=== PATIENT | female | born 1930 | race Caucasian/White ===

== ENCOUNTER 2016-11-28 12:01 | Day surgery (SDC) | payer MEDICARE ==
[2016-11-25 15:07] VITALS: BMI 22.4
[~2016-11-28 12:01] MED LIST: LACTATED RINGERS 1,000 ML IV SCH
[2016-11-28] MEDS: SODIUM CHLORIDE 0.9% 1,000 ML IV SCH ×2 (13:00→19:59)
[2016-11-28 13:10] LABS: INR 2.3 (<1.1); Prothrombin Time 22.4 sec (9.0-12.0)
[2016-11-28 13:35] LABS: Basophils # (A) 0.1 k/uL (0-0.2); Basophils % (A) 1 %; CH 30.5; CHCM 31.6; Eosinophils # (A) 0.2 k/uL (0-0.7); Eosinophils % (A) 2 %; HCT 38.8 % (34.0-46.0); HDW 3.32; HGB 12.2 gm/dL (11.4-16.0); Hypochromasia Slight; Luc # (Auto) 0.22; Luc % (Auto) 3; Lymphocytes # (A) 1.3 k/uL (1.0-4.8); Lymphocytes % (A) 16 %; MCH 30.6 pg (25.0-35.0); MCHC 31.5 g/dL (31.0-37.0); MCV 97.2 fL (80.0-100.0); Mean Platelet Volume 8.2; Monocytes # (A) 0.3 k/uL (0-1.0); Monocytes % (A) 4 %; Neutrophils # (A) 6.4 k/uL (1.3-7.7); Neutrophils % (A) 75 %; RBC 3.99 m/uL (3.80-5.40); WBC 8.6 k/uL (3.8-10.6); WBC (Perox) 9.17
[2016-11-28 13:46] LABS: Anion Gap 9 mmol/L; Blood Urea Nitrogen 27 mg/dL (7-17); Calcium 10.1 mg/dL (8.4-10.2); Carbon Dioxide 25 mmol/L (22-30); Chloride 108 mmol/L (98-107); Glucose 109 mg/dL (74-99); Non-African American GFR(MDRD) 50 (>60 ml/min/1.73 sqM); Potassium 4.7 mmol/L (3.5-5.1); Sodium 142 mmol/L (137-145)
[2016-11-28] MEDS ORDERED: fentaNYL (PF) 50 MCG/ML 2 ML AMP ONE (14:25)
[2016-11-28] MEDS ORDERED: LIDOCAINE 1% INJ 10MG/ML (20 ML MDV) ONE (14:25)
[2016-11-28] MEDS ORDERED: MIDAZOLAM 2 MG/2 ML VIAL ONE (14:25)
[2016-11-28] MEDS ORDERED: PROPOFOL 10 MG/ML 20 ML VIAL IV ONE (14:25)
[2016-11-28] MEDS ORDERED: ceFAZolin 1,000 MG VIAL ONE (14:25)
[2016-11-28] MEDS ORDERED: LIDOCAINE 2% INJ 20 MG/ML SQ ONE (14:50)
--- NOTE | 2016-11-28 15:50 | P.PCN ---
Preoperative Diagnosis: Procedure Dual-chamber pacemaker interrogation and reprogramming preprocedure Electrical cardioversion AV node modification Dual-chamber pacemaker interrogation and reprogramming postprocedure Indication for procedure Drug refractory atrial fibrillation, very difficult rate control despite high- dose AV cinthya blocking drugs, failed several antiarrhythmic drugs Procedure 1. A Metronic dual-chamber pacemaker was interrogated. Atrial lead impedance 976 ohms, ventricular pacing impedance 520 ohms. Patient was in atrial fibrillation with RVR despite sedation The device was reprogrammed to VVI 40 bpm 2. Electrical cardioversion was performed. Patient's INR was therapeutic. A 360 J biphasic shock was delivered in the EP configuration and the patient converted to sinus rhythm 3. AV node modification: A long sheath was placed in the right atrium and a 4 mm tip ablation catheter was used to map the His bundle. Just proximal and slightly below this, RF application at 50 W resulted in complete heart block. An additional more proximal RF lesion was also applied. The patient remained at VVI 40 beats a minute with A-V dissociation 4. The pacemaker was then reprogrammed to DDDR mode at 90 bpm. Post ablation atrial lead impedance 952 ohms. Ventricular pacing impedance 488 ohms Result Successful ablation of AV node Device programmed to a base rate of 90 bpm for the next 2-3 weeks Plan Continue base pacing rate at 90 beats a minute for 2-3 weeks and then reduce to 60 beats a minute thereafter Stop digoxin completely Reduce metoprolol XL to 50 mg per day Home blood pressure monitoring If blood pressure remains elevated after this then we will increase amlodipine to 5 mg by mouth daily Continue lifelong anticoagulation Anesthesia: MAC
[2016-11-28] MEDS ORDERED: WARFARIN 5 MG TAB PO SCH (18:00)
[2016-11-28] MEDS ORDERED: ASPIRIN 81 MG CHEW PO SCH (20:00)
[2016-11-28] MEDS: LISINOPRIL 20 MG TAB PO SCH (20:34)
[2016-11-28] MEDS ORDERED: ATORVASTATIN 20 MG TAB PO SCH (21:00)
[2016-11-28 23:46] VITALS: RESP 16
[2016-11-29] MEDS: LISINOPRIL 20 MG TAB PO SCH (08:14)
--- NOTE | 2016-11-29 08:21 | PN ---
Ms. Torres is doing well. Her groin has healed well. She is having breakfast sitting up at the edge of the bed. She has no chest pain. No breathing trouble. Her pacemaker rate is at 90 beats a minute, post AV node ablation. Heart and lung examination normal. Her blood pressure was mildly elevated this morning. PLAN: Discharge home today after pacemaker interrogation. The pacemaker programming will be maintained at 90 beats a minute for the next 2 to 3 weeks and this was conveyed to the staff as well as to the [employer] sales representative groceries. We will see her again in about 5 days for groin check and for blood pressure re-evaluation. If her blood pressure is elevated, we may consider either amlodipine or we may consider carvedilol. However, I feel that she does not tolerate beta blockers well and we may result to amlodipine instead. Digoxin has been discontinued completely and the dose of metoprolol has been reduced to 50 mg p.o. daily.
[2016-11-29 08:44] VITALS: BP 172/82; PULSE 91; TEMP 97.6
[2016-11-29] MEDS ORDERED: METOPROLOL SUCCINATE (ER) 100 MG TAB.ER.24H PO SCH (09:00)
[2016-11-29] MEDS ORDERED: METOPROLOL SUCCINATE (ER) 50 MG TAB.ER.24H PO SCH (09:00)
[2016-12-01] MEDS ORDERED: WARFARIN 2.5 MG TAB PO SCH (18:00)
== END 2016-11-29 10:35 | disposition home or self-care (01) ==
LOC: CATHEP 12:01 → 3OBS 15:11 → CATHEP 11-29 10:35
PROVIDERS: ATTEND Internal Medicine Clinical Cardiac Electrophysiology
DX: I48.2 Chronic atrial fibrillation (principal); Z45.018 Encounter for adjustment and management of other part of cardiac pacemaker; I25.10 Atherosclerotic heart disease of native coronary artery without angina pectoris; Z95.1 Presence of aortocoronary bypass graft; I49.5 Sick sinus syndrome; E78.5 Hyperlipidemia, unspecified; I12.9 Hypertensive chronic kidney disease with stage 1 through stage 4 chronic kidney disease, or unspecified chronic kidney disease; N18.9 Chronic kidney disease, unspecified; I27.2 Other secondary pulmonary hypertension; Z79.01 Long term (current) use of anticoagulants; Z79.82 Long term (current) use of aspirin; Z79.899 Other long term (current) drug therapy; Z88.8 Allergy status to other drugs, medicaments and biological substances; Z87.891 Personal history of nicotine dependence; Z86.73 Personal history of transient ischemic attack (TIA), and cerebral infarction without residual deficits
CPT/HCPCS: 92960; 93650; 80048; 85025; 85610; C1894; C1769; C1893; C1733; J2001 ×2; J2250; J0690; J3010; J2704

== ENCOUNTER → 2017-02-18 | Outpatient (CLI) | payer MEDICARE ==
[2017-02-18 07:24] LABS: Anisocytosis Slight; Basophils % (A) 1 %; CH 30.3; CHCM 31.4; Eosinophils # (A) 0.3 k/uL (0-0.7); Eosinophils % (A) 4 %; HCT 36.6 % (34.0-46.0); HGB 11.4 gm/dL (11.4-16.0); Hypochromasia Slight; Luc # (Auto) 0.11; Luc % (Auto) 2; Lymphocytes # (A) 1.5 k/uL (1.0-4.8); Lymphocytes % (A) 22 %; MCH 30.3 pg (25.0-35.0); MCHC 31.2 g/dL (31.0-37.0); MCV 97.1 fL (80.0-100.0); Mean Platelet Volume 7.1; Monocytes # (A) 0.4 k/uL (0-1.0); Monocytes % (A) 6 %; Neutrophils # (A) 4.5 k/uL (1.3-7.7); Neutrophils % (A) 66 %; RBC 3.76 m/uL (3.80-5.40); RDW 16.6 % (11.5-15.5); WBC 6.7 k/uL (3.8-10.6); WBC (Perox) 7.15
[2017-02-18 07:27] LABS: Appearance,Urine Clear (Clear); Bilirubin,Urine Negative (Negative); Glucose,Urine (UA) Negative (Negative); Ketones,Urine Negative (Negative); Leukocyte Esterase,Urine Negative (Negative); Nitrite,Urine Negative (Negative); Protein,Urine Negative (Negative); Specific Gravity,Urine 1.011 (1.001-1.035); UA Billing (MACRO vs. MICRO) CHEM; Urobilinogen,Urine <2.0 mg/dL (<2.0)
[2017-02-18 07:50] LABS: Calcium 10.2 mg/dL (8.4-10.2); Potassium 4.5 mmol/L (3.5-5.1); Total Bilirubin 0.9 mg/dL (0.2-1.3); Total Protein 7.1 g/dL (6.3-8.2)
== END | disposition home or self-care (01) ==
LOC: LABWHC1 06:54
PROVIDERS: ATTEND Internal Medicine
DX: E78.5 Hyperlipidemia, unspecified (principal); I10 Essential (primary) hypertension; E55.9 Vitamin D deficiency, unspecified
CPT/HCPCS: 36415; 80053; 80061; 81003; 82306; 85025

== ENCOUNTER 2018-01-18 10:56 | Inpatient (IN) | payer MEDICARE ==
[2018-01-18] MEDS ORDERED: IPRATROPIUM-ALBUTEROL 3 ML NEB INHALATION STA (12:14)
[2018-01-18] MEDS ORDERED: SODIUM CHLORIDE 0.9% 1,000 ML IV STA ×2 (12:15)
--- NOTE | 2018-01-18 12:48 | ED ---
URI HPI - General Source: patient, RN notes reviewed, old records reviewed Mode of arrival: wheelchair Limitations: no limitations <Fara Wall - Last Filed: 01/18/18 14:13> <Ovi Wood - Last Filed: 01/18/18 14:55> - General Chief Complaint: Upper Respiratory Infection Stated Complaint: Cough Time Seen by Provider: 01/18/18 12:04 - History of Present Illness Initial Comments: 87-year-old female presents emergency Department a chief complaint of increased cough congestion shortness of breath. She states that she her symptoms of been going on for a week. states that she has a history of bypass surgery. Her order runner Dr. White. She denies any significant chest pain. No nausea or vomiting. Patient reports it's been a clear sputum cough. She denies any fever or chills. No upper respiratory drainage. No abdominal pain. (Fara Wall) - Related Data Home Medications Medication Instructions Recorded Confirmed Aspirin [Adult Low Dose Aspirin EC] 81 mg PO 199911/25/16 11/28/16 Atorvastatin [Lipitor] 20 mg PO HS 11/25/16 11/28/16 Cholecalciferol [Vitamin D3] 1,000 unit PO DAILY 11/25/16 11/28/16 Cranberry(Dose Unknown) 1 tab PO DAILY 11/25/16 11/28/16 L.acidoph,Paracasei, B.lactis 1 tab PO DAILY 11/25/16 11/28/16 [Probiotic] Lisinopril 20 mg PO BID 11/25/16 11/28/16 Warfarin [Coumadin] 2.5 mg PO PERALTA 11/25/16 11/28/16 Warfarin [Coumadin] 5 mg PO [id number] 11/25/16 11/28/16 amLODIPine [Norvasc] 2.5 mg PO DAILY 11/25/16 11/28/16 Previous Rx's Medication Instructions Recorded Metoprolol Succinate [Toprol XL] 50 mg PO QAM #1 tab.er.24h 11/28/16 Allergies Allergy/AdvReac Type Severity Reaction Status Date / Time cortisone Allergy face gets Verified 01/18/18 11:27 warm Review of Systems ROS Other: All systems not noted in ROS Statement are negative. <Fara Wall - Last Filed: 01/18/18 14:13> ROS Other: All systems not noted in ROS Statement are negative. <Ovi Wood - Last Filed: 01/18/18 14:55> ROS Statement: Those systems with pertinent positive or pertinent negative responses have been documented in the HPI. Past Medical History Past Medical History: Coronary Artery Disease (CAD), CVA/TIA, GERD/Reflux, Hyperlipidemia, Hypertension Additional Past Medical History / Comment(s): TIA, varicose veins History of Any Multi-Drug Resistant Organisms: None Reported Past Surgical History: Appendectomy, Coronary Bypass/CABG, Hysterectomy, Joint Replacement, Pacemaker, Tonsillectomy Additional Past Surgical History / Comment(s): CABG 2011, breast biopsy, liat catarats, rt knee replacement Past Anesthesia/Blood Transfusion Reactions: No Reported Reaction Type of Cardiac Device: Permanent Pacemaker Device Placement Date:: 2011 Past Psychological History: Anxiety Smoking Status: Former smoker Past Alcohol Use History: None Reported Past Drug Use History: None Reported - Past Family History Mother Family Medical History: No Reported History <Fara Wall - Last Filed: 01/18/18 14:13> General Exam Limitations: no limitations General appearance: alert, in no apparent distress Head exam: Present: atraumatic, normocephalic, normal inspection Eye exam: Present: normal appearance, PERRL, EOMI. Absent: scleral icterus, conjunctival injection, periorbital swelling ENT exam: Present: normal exam, mucous membranes moist, other (Rhinorrhea) Neck exam: Present: normal inspection. Absent: tenderness, meningismus, lymphadenopathy Respiratory exam: Present: normal lung sounds bilaterally, wheezes, decreased breath sounds ( is decreased breath sound. Wet sounding cough.). Absent: respiratory distress, rales, rhonchi, stridor Cardiovascular Exam: Present: regular rate, normal rhythm, normal heart sounds. Absent: systolic murmur, diastolic murmur, rubs, gallop, clicks GI/Abdominal exam: Present: soft, normal bowel sounds. Absent: distended, tenderness, guarding, rebound, rigid Extremities exam: Present: normal inspection, full ROM, normal capillary refill , other (No significant edema.). Absent: tenderness, pedal edema, joint swelling, calf tenderness Back exam: Present: normal inspection Neurological exam: Present: alert, oriented X3, CN II-XII intact Psychiatric exam: Present: normal affect, normal mood Skin exam: Present: warm, dry, intact, normal color. Absent: rash <Fara Wall - Last Filed: 01/18/18 14:13> <Ovi Wood - Last Filed: 01/18/18 14:55> - General Exam Comments Initial Comments: This is an 87-year-old female. Alert and oriented. No significant distress. ( Fara Wall) Vital Signs 01/18/18 01/18/18 01/18/18 11:21 12:18 12:29 Temperature 97.7 F Pulse Rate 62 62 64 Respiratory 18 Rate Blood Pressure 199/80 O2 Sat by Pulse 97 Oximetry 01/18/18 14:00 Temperature Pulse Rate 60 Respiratory 20 Rate Blood Pressure 231/93 O2 Sat by Pulse 100 Oximetry Medical Decision Making - Lab Data Result diagrams: 01/18/18 12:45 01/18/18 12:45 - Radiology Data Radiology results: report reviewed <Fara Wall - Last Filed: 01/18/18 14:13> - Lab Data Result diagrams: 01/18/18 12:45 01/18/18 12:45 <Ovi Wood - Last Filed: 01/18/18 14:55> - Medical Decision Making 7-year-old female presents with 1 week of cough and shortness of breath. Patient does not have any significant leg edema but does have a diminished breath sounds. Patient's chest x-ray shows evidence of bilateral pleural effusion and increased vascular congestion. Patient also did have some wheezing noted on exam. She is given a DuoNeb treatment. Patient has an elevated BNP of 5500. Patient started on IV Lasix. Her order runner Dr. Potter in. EKG is ventricular paced rhythm. Rate is 60 bpm. Patient will be admitted at this time with close follow-up with cardiology. Start IV Lasix and Nitropaste. She did also arrive and hypertensive emergency with blood pressure 200/100. He was given IV labetalol. The patient's wheezing also concern for possibility of pneumonia. We'll start the patient on IV Levaquin. Continued breathing treatments. (Fara Wall) The patient was seen and examined. All diagnostics are reviewed. The case is discussed with Dr. Rouse and he is agreeable to admission. The case is discussed with the PA and I agree with the findings as documented. It is felt as though she likely also may have a bronchitis or pneumonia. She does have a consolidation in her left base and has been having a fair amount of nasal congestion and cough. She denies any actual fever. She'll be covered with antibiotics as well. (Ovi Wood) - Lab Data Lab Results 01/18/18 01/18/18 01/18/18 Range/Units 12:45 12:45 12:45 WBC 9.0 (3.8-10.6) k/uL RBC 3.82 (3.80-5.40) m/uL Hgb 11.5 (11.4-16.0) gm/dL Hct 36.1 (34.0-46.0) % MCV 94.7 (80.0-100.0) fL MCH 30.2 (25.0-35.0) pg MCHC 31.9 (31.0-37.0) g/dL RDW 15.1 (11.5-15.5) % Plt Count 211 (150-450) k/uL Neutrophils % 81 % Lymphocytes % 9 % Monocytes % 5 % Eosinophils % 3 % Basophils % 0 % Neutrophils # 7.2 (1.3-7.7) k/uL Lymphocytes # 0.8 L (1.0-4.8) k/uL Monocytes # 0.5 (0-1.0) k/uL Eosinophils # 0.3 (0-0.7) k/uL Basophils # 0.0 (0-0.2) k/uL PT (9.0-12.0) sec INR (<1.2) APTT (22.0-30.0) sec D-Dimer (<0.60) mg/L FEU Sodium 141 (137-145) mmol/L Potassium 4.6 (3.5-5.1) mmol/L Chloride 107 (98-107) mmol/L Carbon Dioxide 22 (22-30) mmol/L Anion Gap 12 mmol/L BUN 25 H (7-17) mg/dL Creatinine 0.92 (0.52-1.04) mg/dL Est GFR (CKD-EPI)AfAm 65 (>60 ml/min/1.73 sqM) Est GFR (CKD-EPI)NonAf 57 (>60 ml/min/1.73 sqM) Glucose 113 H (74-99) mg/dL Calcium 10.0 (8.4-10.2) mg/dL Magnesium 1.5 L (1.6-2.3) mg/dL Total Bilirubin 1.1 (0.2-1.3) mg/dL AST 37 H (14-36) U/L ALT 51 (9-52) U/L Alkaline Phosphatase 66 (38-126) U/L Total Creatine Kinase 142 H (30-135) U/L CK-MB (CK-2) 2.5 H* (0.0-2.4) ng/mL CK-MB (CK-2) Rel Index 1.8 Troponin I 0.019 (0.000-0.034) ng/mL NT-Pro-B Natriuret Pep pg/mL Total Protein 6.6 (6.3-8.2) g/dL Albumin 3.7 (3.5-5.0) g/dL 01/18/18 01/18/18 Range/Units 12:45 12:45 WBC (3.8-10.6) k/uL RBC (3.80-5.40) m/uL Hgb (11.4-16.0) gm/dL Hct (34.0-46.0) % MCV (80.0-100.0) fL MCH (25.0-35.0) pg MCHC (31.0-37.0) g/dL RDW (11.5-15.5) % Plt Count (150-450) k/uL Neutrophils % % Lymphocytes % % Monocytes % % Eosinophils % % Basophils % % Neutrophils # (1.3-7.7) k/uL Lymphocytes # (1.0-4.8) k/uL Monocytes # (0-1.0) k/uL Eosinophils # (0-0.7) k/uL Basophils # (0-0.2) k/uL PT 10.8 (9.0-12.0) sec INR 1.1 (<1.2) APTT 25.0 (22.0-30.0) sec D-Dimer 0.49 (<0.60) mg/L FEU Sodium (137-145) mmol/L Potassium (3.5-5.1) mmol/L Chloride (98-107) mmol/L Carbon Dioxide (22-30) mmol/L Anion Gap mmol/L BUN (7-17) mg/dL Creatinine (0.52-1.04) mg/dL Est GFR (CKD-EPI)AfAm (>60 ml/min/1.73 sqM) Est GFR (CKD-EPI)NonAf (>60 ml/min/1.73 sqM) Glucose (74-99) mg/dL Calcium (8.4-10.2) mg/dL Magnesium (1.6-2.3) mg/dL Total Bilirubin (0.2-1.3) mg/dL AST (14-36) U/L ALT (9-52) U/L Alkaline Phosphatase (38-126) U/L Total Creatine Kinase (30-135) U/L CK-MB (CK-2) (0.0-2.4) ng/mL CK-MB (CK-2) Rel Index Troponin I (0.000-0.034) ng/mL NT-Pro-B Natriuret Pep 5830 pg/mL Total Protein (6.3-8.2) g/dL Albumin (3.5-5.0) g/dL 01/18/18 13:35 EKG performed at 1247 just ventricular paced rhythm. Normal EKG noted. Ventricular rate of 60 bpm. And wanted ejected QRS ration 140. QT QTc is 474 ms. (Fara Wall) - Radiology Data Chest x-ray shows evidence of mild CHF exacerbation. Bilateral pleural effusions. (Fara Wall) Disposition Is patient prescribed a controlled substance at d/c from ED?: No If prescribed controlled substance>3 days was MAPS reviewed?: No When asked, does pt state using other controlled substances?: No Time of Disposition: 14:16 <Fara Wall - Last Filed: 01/18/18 14:13> <Ovi Wood - Last Filed: 01/18/18 14:55> Clinical Impression: Bronchitis, CHF (congestive heart failure), Hypertensive urgency Disposition: ADMITTED IP TO THIS HOSP Condition: Good Referrals: Karthik Olsen MD [Primary Care Provider] - 1-2 days
[2018-01-18 13:03] LABS: Basophils % (A) 0 %; Eosinophils # (A) 0.3 k/uL (0-0.7); Eosinophils % (A) 3 %; HCT 36.1 % (34.0-46.0); HGB 11.5 gm/dL (11.4-16.0); Lymphocytes # (A) 0.8 k/uL (1.0-4.8); Lymphocytes % (A) 9 %; MCH 30.2 pg (25.0-35.0); MCHC 31.9 g/dL (31.0-37.0); MCV 94.7 fL (80.0-100.0); Mean Platelet Volume 6.7; Monocytes # (A) 0.5 k/uL (0-1.0); Monocytes % (A) 5 %; Neutrophils # (A) 7.2 k/uL (1.3-7.7); Neutrophils % (A) 81 %; Platelet Count 211 k/uL (150-450); RBC 3.82 m/uL (3.80-5.40); RDW 15.1 % (11.5-15.5)
[2018-01-18 13:15] LABS: Albumin 3.7 g/dL (3.5-5.0); Magnesium 1.5 mg/dL (1.6-2.3); Potassium 4.6 mmol/L (3.5-5.1); Total Bilirubin 1.1 mg/dL (0.2-1.3); Total Protein 6.6 g/dL (6.3-8.2)
[2018-01-18 13:21] LABS: D-Dimer 0.49 mg/L FEU (<0.60); INR 1.1 (<1.2); Prothrombin Time 10.8 sec (9.0-12.0)
--- NOTE | 2018-01-18 13:27 | XR ---
EXAMINATION TYPE: XR chest 2V DATE OF EXAM: 01/18/2018 COMPARISON: 12/19/2011 HISTORY: 87-year-old female difficulty breathing TECHNIQUE: AP and lateral views FINDINGS: Heart borderline enlarged. Median sternotomy wires with postoperative clips in the mediastinum. Left anterior chest wall pacemaker generator with right atrial and right ventricular leads. Increased inte rstitial densities from prior exam along with new small pleural effusions with adjacent opacity. IMPRESSION: 1. Mild CHF with pulmonary vascular congestion. 2. New small pleural effusions with adjacent atelectasis and/or consolidation.
[2018-01-18 13:41] LABS: Troponin I 0.019 ng/mL (0.000-0.034)
[2018-01-18 13:43] LABS: Creatine Kinase MB 2.5 ng/mL (0.0-2.4)
[2018-01-18] MEDS ORDERED: LABETALOL 5 MG/ML VIAL MDV IVP STA (13:55)
[2018-01-18] MEDS ORDERED: ASPIRIN 325 MG TAB PO STA (13:57)
[2018-01-18] MEDS ORDERED: FUROSEMIDE 10 MG/ML 4 ML VIAL IV STA (14:03)
[2018-01-18] MEDS ORDERED: LEVOFLOXACIN 750MG-D5W PMX 750 MG in DEXTROSE/WATER 1 150ML.BAG IVPB STA (14:14)
[2018-01-18] MEDS ORDERED: NALOXONE 0.4 MG/ML 1 ML VIAL IV PRN (14:17)
[2018-01-18] MEDS ORDERED: IBUPROFEN 400 MG TAB PO PRN (14:17)
[2018-01-18] MEDS ORDERED: ONDANSETRON 4 MG/2 ML VIAL IVP PRN (14:17)
[2018-01-18] MEDS: SODIUM CHLORIDE 0.9% 1,000 ML IV SCH (15:53)
[2018-01-18] MEDS: NITROGLYCERIN OINT 1 INCH/GM PACKET TOPICAL SCH (18:53)
[2018-01-18] MEDS ORDERED: IPRATROPIUM-ALBUTEROL 3 ML NEB INHALATION PRN (20:26)
[2018-01-18] MEDS: IPRATROPIUM-ALBUTEROL 3 ML NEB INHALATION SCH (20:27)
[2018-01-18 22:44] LABS: Creatine Kinase MB 3.4 ng/mL (0.0-2.4)
[2018-01-18 22:46] LABS: Troponin I 0.035 ng/mL (0.000-0.034)
[2018-01-19 01:43] LABS: Troponin I 0.029 ng/mL (0.000-0.034)
[2018-01-19] MEDS: SODIUM CHLORIDE 0.9% 1,000 ML IV SCH (01:55)
[2018-01-19] MEDS: FUROSEMIDE 10 MG/ML 4 ML VIAL IV SCH ×3 (02:48→15:52)
[2018-01-19] MEDS ORDERED: LISINOPRIL 20 MG TAB PO STA ×2 (04:21→04:44)
[2018-01-19] MEDS ORDERED: METOPROLOL SUCCINATE (ER) 100 MG TAB.ER.24H PO STA (04:22)
[2018-01-19] MEDS ORDERED: SODIUM CHLORIDE 0.9% 1,000 ML IV SCH (05:15)
[2018-01-19] MEDS: METOPROLOL SUCCINATE (ER) 50 MG TAB.ER.24H PO SCH (06:21)
[2018-01-19] MEDS: IPRATROPIUM-ALBUTEROL 3 ML NEB INHALATION SCH ×4 (07:31→19:56)
[2018-01-19] MEDS ORDERED: ASPIRIN 81 MG PO SCH ×2 (09:00→12:15)
[2018-01-19] MEDS ORDERED: PANTOPRAZOLE 40 MG/10 ML VIAL IV SCH (09:00)
[2018-01-19] MEDS ORDERED: FUROSEMIDE 20 MG TAB PO SCH (09:00)
[2018-01-19 09:14] VITALS: BMI 27.6
[2018-01-19] MEDS: NITROGLYCERIN OINT 1 INCH/GM PACKET TOPICAL SCH ×5 (09:15→21:10)
[2018-01-19] MEDS: APIXABAN 5 MG TAB PO SCH ×2 (10:29→21:10)
[2018-01-19] MEDS: amLODIPine 2.5 MG TAB PO SCH ×2 (10:29→21:11)
[2018-01-19] MEDS ORDERED: ALPRAZolam 0.25 MG TAB PO PRN (12:14)
[2018-01-19] MEDS ORDERED: MAGNESIUM HYDROXIDE 2,400 MG/10 ML CUP PO PRN (12:14)
[2018-01-19] MEDS ORDERED: MELATONIN 3 MG TABLET PO PRN (12:14)
[2018-01-19] MEDS ORDERED: CALCIUM CARBONATE 500 MG CHEWABLE PO PRN (12:14)
[2018-01-19] MEDS ORDERED: LACTULOSE 20 GM/30 ML CUP PO PRN (12:14)
[2018-01-19] MEDS ORDERED: amLODIPine 2.5 MG TAB PO SCH (12:15)
[2018-01-19] MEDS ORDERED: APIXABAN 5 MG TAB PO SCH (12:15)
[2018-01-19] MEDS ORDERED: METOPROLOL SUCCINATE (ER) 50 MG TAB.ER.24H PO SCH (12:15)
[2018-01-19] MEDS ORDERED: LISINOPRIL 20 MG TAB PO SCH (12:15)
--- NOTE | 2018-01-19 13:46 | HP ---
HISTORY AND PHYSICAL DATE OF ADMISSION: 01/18/2018 DATE OF SERVICE: 01/19/2018 PRESENTING COMPLAINT: Short of breath. HISTORY OF PRESENTING COMPLAINT: A very pleasant 87-year-old patient of Dr. 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 Chronic stable medical conditions include GERD, hypertension, hyperlipidemia, varicose veins, osteoarthritis. The patient has known coronary artery disease with bypass 7 years ago and also had a permanent pacemaker. The patient presented with 4 days of increasing cough, shortness of breath, some wheezing, some orthopnea. Denies any chest pain or palpitation. Appetite is fair. No fever. Tired, run down. The patient is bringing up some clear sputum. Patient's at the bedside. REVIEW OF SYSTEMS: CONSTITUTIONAL: Tired. HEENT: None. RESPIRATORY: As above. CARDIOVASCULAR: As above. GASTROINTESTINAL: Heartburn. GENITOURINARY: Urine incontinence. DERMATOLOGICAL: None. HEMATOLOGIC: None. LYMPHATIC: None. PSYCHIATRY: None. NEUROLOGICAL: None. MUSCULOSKELETAL: Pain in the different joints. PAST MEDICAL HISTORY: Coronary artery disease with bypass, TIA, GERD, hyperlipidemia, hypertension, varicose veins. PAST SURGICAL HISTORY: Appendectomy, coronary bypass, hysterectomy, pacemaker, coronary artery bypass in 2011, bilateral cataract surgery, right knee replacement, permanent pacemaker. SOCIAL HISTORY: Patient smoked for about 20 years, stopped 1968. . FAMILY HISTORY: Reviewed, noncontributory to presentation. HOME MEDICATIONS: 1. D-Mannose 500 mg p.o. b.i.d. 2. Xalatan 0.005% 1 drop to both eyes at bedtime. 3. Vitamin D3, 1000 units p.o. daily. 4. Aspirin 81 mg p.o. daily. 5. Norvasc 2.5 mg p.o. . 6. Lisinopril 40 mg p.o. daily. 7. Lasix 20 mg p.o. daily p.r.n. 8. Eliquis 5 mg p.o. b.i.d. 9. Toprol XL 150 mg p.o. daily. 10.Lipitor 20 mg at bedtime. ALLERGIES: Allergies to CORTISONE. PHYSICAL EXAMINATION: On examination, vital signs on presentation, temperature 97.5, pulse 62, respiratory 18, blood pressure 199/80, pulse ox 97% on room air. Repeat blood pressure down yesterday evening to 170/72. GENERAL APPEARANCE: Average build, lying in bed, tired appearing. EYES: Pupils equal. Conjunctivae normal. HENT: External appearance of nose and ears normal. Oral cavity normal. NECK: JVD raised. Mass not palpable. RESPIRATORY: Effort increased. LUNGS: Basal crackles. Minimal wheezing. CARDIOVASCULAR: First and second sounds normal. Mild edema. ABDOMEN: Soft, nontender. Liver and spleen not palpable. LYMPHATIC: No lymph node palpable in the neck or axillae. PSYCHIATRY: Alert and oriented x3. Mood and affect normal. NEUROLOGICAL: Pupils equal. Cranial nerves grossly intact. Power and sensation grossly intact. MUSCULOSKELETAL: Evidence of osteoarthritis especially in the hands and knees. INVESTIGATIONS: White count 9, hemoglobin 11.5. Potassium 4.6. BUN 25, creatinine 0.92. Magnesium 1.5. Troponin 0.019, 0.035. ProBNP 5830. Chest x-ray reviewed by me shows venous prominence and small pleural effusion. ASSESSMENT: 1. Acute congestive heart failure exacerbation. Ejection fraction not known. 2. Permanent pacemaker. 3. Coronary artery disease with history of coronary bypass 7 years ago. 4. Gastroesophageal reflux disease. 5. Essential hypertension. 6. Hyperlipidemia. 7. Permanent pacemaker. 8. Primary osteoarthritis multiple joints. 9. Persistent atrial fibrillation for which patient is on anticoagulation. PLAN: Patient is started on IV Lasix. Home medications are resumed. Cardiology was consulted. Care was discussed with the patient and the . MMODL / IJN: [id number] /
[2018-01-19] MEDS: MAGNESIUM OXIDE 400 MG TAB PO SCH ×2 (14:11→21:10)
[2018-01-19] MEDS: CHOLECALCIFEROL 1,000 UNIT TAB PO SCH (14:11)
--- NOTE | 2018-01-19 15:41 | P.CRDCN ---
History of Present Illness Consult date: 01/19/18 History of present illness: This 87-year-old female with history of coronary artery disease, hypertension and chronic atrial fibrillation, status post permanent pacemaker implantation. Patient came to the hospital with complaints of cough, shortness of breath, wheezing. Denied any chest pain. No significant peripheral edema. Her chest x -ray showed mild cardiomegaly and possible CHF. Clinically patient has expiratory rhonchi and wheezing consistent with asthmatic bronchitis. Her BNP is elevated. Her d-dimer is within normal limits. I will continue the diuretics. May also be considered for steroids and also antibiotics. May benefit from a pulmonary consult. Echocardiogram is being done Review of Systems As per the chart Past Medical History Past Medical History: Coronary Artery Disease (CAD), CVA/TIA, GERD/Reflux, Hyperlipidemia, Hypertension Additional Past Medical History / Comment(s): TIA, varicose veins History of Any Multi-Drug Resistant Organisms: None Reported Past Surgical History: Appendectomy, Coronary Bypass/CABG, Hysterectomy, Joint Replacement, Pacemaker, Tonsillectomy Additional Past Surgical History / Comment(s): CABG 2011, breast biopsy, liat catarats, rt knee replacement Past Anesthesia/Blood Transfusion Reactions: No Reported Reaction Type of Cardiac Device: Permanent Pacemaker Device Placement Date:: 2011 Past Psychological History: Anxiety Smoking Status: Former smoker Past Alcohol Use History: None Reported Additional Past Alcohol Use History / Comment(s): quit smoking 1968, started smoking age 19 Past Drug Use History: None Reported - Past Family History Mother Family Medical History: No Reported History Medications and Allergies Home Medications Medication Instructions Recorded Confirmed Type Aspirin [Adult Low Dose Aspirin EC] 81 mg PO DAILY 11/25/16 01/18/18 History Atorvastatin [Lipitor] 20 mg PO HS 11/25/16 01/18/18 History Cholecalciferol [Vitamin D3] 1,000 unit PO DAILY 11/25/16 01/18/18 History Lisinopril 40 mg PO DAILY 11/25/16 01/18/18 History amLODIPine [Norvasc] 2.5 mg PO BID 11/25/16 01/18/18 History Apixaban [Eliquis] 5 mg PO BID 01/18/18 01/18/18 History D-Mannose 500mg 500 mg PO BID 01/18/18 01/18/18 History Furosemide [Lasix] 20 mg PO DAILY PRN 01/18/18 01/18/18 History Latanoprost [Xalatan 0.005%] 1 drop BOTH EYES HS 01/18/18 01/18/18 History Metoprolol Succinate (ER) [Toprol 150 mg PO DAILY 01/18/18 01/18/18 History Xl] Allergies Allergy/AdvReac Type Severity Reaction Status Date / Time cortisone Allergy face gets Verified 01/18/18 15:59 warm Physical Exam Vitals: Vital Signs Temp Pulse Pulse Resp BP BP Pulse Ox 01/19/18 12:47 96 01/19/18 11:38 98.6 F 60 16 162/70 96 01/19/18 11:16 60 01/19/18 11:04 59 L 01/19/18 10:53 60 16 181/88 99 01/19/18 09:05 97.7 F 61 16 199/98 99 01/19/18 07:47 92 01/19/18 07:32 60 100 01/19/18 06:57 97.5 F L 60 16 199/83 100 01/19/18 05:17 60 16 195/81 97 01/19/18 04:10 60 16 215/81 98 01/19/18 01:56 98.2 F 59 L 18 192/79 100 01/18/18 23:35 98.5 F 63 18 196/77 100 01/18/18 22:30 98.6 F 73 18 98 01/18/18 19:19 98.0 F 63 16 196/81 99 01/18/18 18:56 60 16 170/72 100 01/18/18 16:08 60 16 144/79 98 Intake and Output 01/19/18 01/19/18 01/19/18 06:59 14:59 22:59 Output Total 300 Balance -300 Output: Urine 300 Other: Voiding Method Bedside Commode Diaper # Voids 2 Weight 66.4 kg GENERAL EXAM: Patient is alert and oriented and doesn't appear to be in any acute distress HEENT: Normocephalic. Normal reaction of pupils, equal size, normal range of extraocular motion. No erythema or exudates in the throat. NECK: No masses, no nuchal rigidity. CHEST: No chest wall deformity. LUNGS: Bilateral wheezing and rhonchi which are expiratory HEART: S1 and S2 normal with no audible mumurs or gallops. Regular rhythm, femorals equal on both sides.. ABDOMEN: No hepatosplenomegaly, normal bowel sounds, no guarding or rigidity. SKIN: No rashes CENTRAL NERVOUS SYSTEM: No focal deficits. EXTREMITIES: No cyanosis, clubbing or edema. Results 01/18/18 12:45 01/18/18 12:45 Cardiac Enzymes 01/18/18 01/19/18 Range/Units 21:13 00:32 CK-MB (CK-2) 3.4 H* 4.0 H* (0.0-2.4) ng/mL Troponin I 0.035 H* 0.029 (0.000-0.034) ng/mL Current Medications Generic Name Dose Route Start Last Admin Trade Name Freq PRN Reason Stop Dose Admin Albuterol/Ipratropium 3 ml 01/19/18 08:00 01/19/18 15:35 Duoneb 0.5 Mg-3 Mg/3 Ml Soln INHALATION 3 ml RT-QID KAYODE Administration Albuterol/Ipratropium 3 ml 01/18/18 20:26 Duoneb 0.5 Mg-3 Mg/3 Ml Soln INHALATION RT-Q2H PRN Shortness Of Breath Or Wheezing Alprazolam 0.25 mg 01/19/18 12:14 Xanax PO Q6HR PRN Anxiety Amlodipine Besylate 2.5 mg 01/19/18 09:00 01/19/18 10:29 Norvasc PO 2.5 mg BID KAYODE Administration Apixaban 5 mg 01/19/18 09:00 01/19/18 10:29 Eliquis PO 5 mg BID KAYODE Administration Aspirin 81 mg 01/20/18 09:00 Aspirin PO DAILY [facility] Atorvastatin Calcium 20 mg 01/20/18 09:00 Lipitor PO HS [facility] Calcium Carbonate/Glycine 1,000 mg 01/19/18 12:14 Tums PO Q4HR PRN Dyspepsia Cholecalciferol 1,000 unit 01/19/18 12:00 01/19/18 14:11 Vitamin D3 PO 1,000 unit DAILY@1200 KAYODE Administration Furosemide 40 mg 01/19/18 00:00 01/19/18 10:34 Lasix IV 40 mg Q8HR KAYODE Administration Ibuprofen 400 mg 01/18/18 14:17 Motrin PO Q6HR PRN Mild Pain or Fever > 100.5 Lactulose 20 gm 05/21/18 12:14 Cephulac PO DAILY PRN Constipation Latanoprost 1 drops 01/19/18 21:00 Xalatan 0.005% BOTH EYES HS [facility] Lisinopril 40 mg 01/20/18 09:00 Zestril PO DAILY [facility] Magnesium Hydroxide 2,400 mg 01/19/18 12:14 Milk Of Magnesia PO DAILY PRN Constipation Magnesium Oxide 200 mg 01/19/18 16:00 01/19/18 14:11 Mag-Ox PO 200 mg TID [facility] Administration Melatonin 3 mg 01/19/18 12:14 Melatonin PO HS PRN Insomnia Metoprolol Succinate 150 mg 01/20/18 09:00 01/19/18 06:21 Toprol Xl PO 150 mg DAILY [facility] Administration Naloxone HCl 0.2 mg 01/18/18 14:17 Narcan IV Q2M PRN Opioid Reversal Nitroglycerin 1 inch 01/18/18 18:00 01/19/18 14:10 Nitro-Bid Oint TOPICAL 1 inch QID [facility] Administration Ondansetron HCl 4 mg 01/18/18 14:17 Zofran IVP Q8HR PRN Nausea And Vomiting Intake and Output 01/19/18 01/19/18 01/19/18 06:59 14:59 22:59 Output Total 300 Balance -300 Output: Urine 300 Other: Voiding Method Bedside Commode Diaper # Voids 2 Weight 66.4 kg Patient Weight 01/20/18 06:59 Weight 66.4 kg 01/18/18 12:45 01/18/18 12:45 EKG Interpretations (text) Showed pacer rhythm Assessment and Plan (1) Chronic atrial fibrillation Current Visit: Yes Status: Acute Code(s): I48.2 - CHRONIC ATRIAL FIBRILLATION SNOMED Code(s): 406156995 (2) Bronchitis Current Visit: Yes Status: Acute Code(s): J40 - BRONCHITIS, NOT SPECIFIED ACUTE OR CHRONIC SNOMED Code(s): 82604777 (3) CHF (congestive heart failure) Current Visit: Yes Status: Acute Code(s): I50.9 - HEART FAILURE, UNSPECIFIED SNOMED Code(s): 53735778 (4) Hypertensive urgency Current Visit: Yes Status: Acute Code(s): I16.0 - HYPERTENSIVE URGENCY SNOMED Code(s): 881204589 (5) CAD (coronary artery disease) Current Visit: Yes Status: Acute Code(s): I25.10 - ATHSCL HEART DISEASE OF [place] CORONARY ARTERY W/O ANG PCTRS SNOMED Code(s): 93288744 (6) Pacemaker Current Visit: Yes Status: Acute Code(s): Z95.0 - PRESENCE OF CARDIAC PACEMAKER SNOMED Code(s): 583964490 Plan: Continue current medical therapy. Consider adding steroids plus or minus antibiotics. May consider pulmonary consult. We'll also review the echocardiogram
--- NOTE | 2018-01-19 15:44 | P.PN ---
Subjective Progress Note Date: 01/19/18 Principal diagnosis: Bronchitis, CHF, atrial fibrillation This 87-year-old female was admitted yesterday through emergency room with complaints of cough, congestion and wheezing. She has been treated with IV Lasix. Patient still is coughing and short of breath. On examination does have expiratory wheezes. May consider adding steroids. May also consider pulmonary consult. Her d-dimer was negative. Echo Cardigan showed normal LV function. There is evidence of moderate pulmonary hypertension and also moderate tricuspid regurgitation. Objective - Vital Signs Vital signs: Vital Signs Temp 98.6 F 01/19/18 11:38 Pulse 62 01/19/18 15:38 Resp 16 01/19/18 11:38 BP 162/70 01/19/18 11:38 Pulse Ox 96 01/19/18 12:47 Intake & Output 01/18/18 01/19/18 01/19/18 18:59 06:59 18:59 Output Total 300 Balance -300 Weight 63.503 kg 66.4 kg Output: Urine 300 Other: Voiding Method Bedside Commode Diaper # Voids 2 - Exam GENERAL EXAM: Patient is alert and oriented and doesn't appear to be in any acute distress HEENT: Normocephalic. Normal reaction of pupils, equal size, normal range of extraocular motion. No erythema or exudates in the throat. NECK: No masses, no nuchal rigidity. CHEST: No chest wall deformity. LUNGS: Expiratory wheezes and rhonchi HEART: S1 and S2 normal with no audible mumurs or gallops. Regular rhythm, femorals equal on both sides.. ABDOMEN: No hepatosplenomegaly, normal bowel sounds, no guarding or rigidity. SKIN: No rashes CENTRAL NERVOUS SYSTEM: No focal deficits. EXTREMITIES: No cyanosis, clubbing or edema. - Labs CBC & Chem 7: 01/18/18 12:45 01/18/18 12:45 Labs: Abnormal Lab Results - Last 24 Hours (Table) 01/18/18 01/19/18 Range/Units 21:13 00:32 Total Creatine Kinase 166 H 177 H (30-135) U/L CK-MB (CK-2) 3.4 H* 4.0 H* (0.0-2.4) ng/mL Troponin I 0.035 H* (0.000-0.034) ng/mL Microbiology - Last 24 Hours (Table) 01/18/18 12:45 Blood Culture - Preliminary Blood No Growth after 24 hours Assessment and Plan (1) Chronic atrial fibrillation Current Visit: Yes Status: Acute Code(s): I48.2 - CHRONIC ATRIAL FIBRILLATION SNOMED Code(s): 899744064 (2) Bronchitis Current Visit: Yes Status: Acute Code(s): J40 - BRONCHITIS, NOT SPECIFIED ACUTE OR CHRONIC SNOMED Code(s): 62682236 (3) CHF (congestive heart failure) Current Visit: Yes Status: Acute Code(s): I50.9 - HEART FAILURE, UNSPECIFIED SNOMED Code(s): 40496275 (4) Hypertensive urgency Current Visit: Yes Status: Acute Code(s): I16.0 - HYPERTENSIVE URGENCY SNOMED Code(s): 744647884 (5) CAD (coronary artery disease) Current Visit: Yes Status: Acute Code(s): I25.10 - ATHSCL HEART DISEASE OF [place] CORONARY ARTERY W/O ANG PCTRS SNOMED Code(s): 13937633 (6) Pacemaker Current Visit: Yes Status: Acute Code(s): Z95.0 - PRESENCE OF CARDIAC PACEMAKER SNOMED Code(s): 905732804 Plan: Continue current medical therapy. Consider adding steroids. May also get pulmonary consult
[2018-01-19] MEDS ORDERED: ATORVASTATIN 20 MG TAB PO SCH ×2 (21:00)
[2018-01-19] MEDS ORDERED: LATANOPROST 0.005% OPHTH DROPS 2.5 ML BTL BOTH EYES SCH (21:00)
[2018-01-19] MEDS: LATANOPROST 0.005% OPHTH DROPS 2.5 ML BTL BOTH EYES SCH (21:10)
[2018-01-20] MEDS: FUROSEMIDE 10 MG/ML 4 ML VIAL IV SCH ×2 (00:10→09:40)
--- NOTE | 2018-01-20 06:58 | ECHOF ---
Referral Reason:chf MEASUREMENTS -------- HEIGHT: 152.4 cm WEIGHT: 66.2 kg BP: IVSd: 1.4 cm (0.6 - 1.1) LVIDd: 4.6 cm (3.9 - 5.3) LVPWd: 1.4 cm (0.6 - 1.1) IVSs: 1.8 cm LVIDs: 3.7 cm LVPWs: 1.2 cm LA Diam: 4.4 cm (2.7 - 3.8) LAESV Index (A-L): 50.75 ml/m Ao Diam: 3.2 cm (2.0 - 3.7) AV Cusp: 1.9 cm (1.5 - 2.6) LA Diam: 4.3 cm (2.7 - 3.8) MV EXCURSION: 18.742 mm (> 18.000) MV EF SLOPE: 87 mm/s (70 - 150) EPSS: 0.1 cm MV E Dimas: 0.96 m/s MV DecT: 168 ms MV A Dimas: 0.24 m/s MV E/A Ratio: 4.05 RAP: 5.00 mmHg RVSP: 55.30 mmHg FINDINGS -------- Paced rhythm. This was a technically good study. The left ventricular size is normal. There is mild concentric left ventricular hypertrophy. Overa ll left ventricular systolic function is low-normal with, an EF between 50 - 55 %. The right ventricle is normal in size. The left atrium is markedly dilated. LA is severely dilated >40 ml/m2 The right atrial size is normal. There is mild aortic valve sclerosis. There is no evidence of aortic regurgitation. Mild mitral annular calcification present. Mild mitral regurgitation is present. Mild tricuspid regurgitation present. There is moderate pulmonary hypertension. The right ventric ular systolic pressure, as measured by Doppler, is 55.30mmHg. There is no pulmonic regurgitation present. The aortic root size is normal. There is no pericardial effusion. CONCLUSIONS -------- 1. Paced rhythm. 2. The left ventricular size is normal. 3. There is mild concentric left ventricular hypertrophy. 4. Overall left ventricular systolic function is low-normal with, an EF between 50 - 55 %. 5. The right ventricle is normal in size. 6. The left atrium is markedly dilated. 7. LA is severely dilated >40 ml/m2 8. The right atrial size is normal. 9. There is mild aortic valve sclerosis. 10. Mild mitral annular calcification present. 11. Mild mitral regurgitation is present. 12. Mild tricuspid regurgitation present. 13. There is moderate pulmonary hypertension. 14. The right ventricular systolic pressure, as measured by Doppler, is 55.30mmHg. 15. There is no pulmonic regurgitation present. 16. The aortic root size is normal. 17. There is no pericardial effusion. [employer] DIRECTOR: Ute Sanchez RDCS
[2018-01-20 07:47] LABS: Calcium 9.3 mg/dL (8.4-10.2); Potassium 3.9 mmol/L (3.5-5.1)
[2018-01-20] MEDS: IPRATROPIUM-ALBUTEROL 3 ML NEB INHALATION SCH ×4 (07:50→21:00)
[2018-01-20] MEDS ORDERED: LISINOPRIL 20 MG TAB PO SCH (09:00)
[2018-01-20] MEDS: LISINOPRIL 20 MG TAB PO SCH (09:41)
[2018-01-20] MEDS: METOPROLOL SUCCINATE (ER) 50 MG TAB.ER.24H PO SCH (09:41)
[2018-01-20] MEDS: APIXABAN 5 MG TAB PO SCH ×2 (09:42→21:14)
[2018-01-20] MEDS: ASPIRIN 81 MG PO SCH (09:42)
[2018-01-20] MEDS: amLODIPine 2.5 MG TAB PO SCH ×2 (09:42→21:14)
[2018-01-20] MEDS: ATORVASTATIN 20 MG TAB PO SCH ×2 (09:43→21:14)
[2018-01-20] MEDS: CHOLECALCIFEROL 1,000 UNIT TAB PO SCH (09:44)
[2018-01-20] MEDS: MAGNESIUM OXIDE 400 MG TAB PO SCH ×3 (09:44→21:15)
[2018-01-20] MEDS: NITROGLYCERIN OINT 1 INCH/GM PACKET TOPICAL SCH ×4 (09:44→20:12)
--- NOTE | 2018-01-20 15:52 | P.PN ---
Subjective Progress Note Date: 01/20/18 This is a pleasant 87-year-old female with known history of coronary artery disease, hypertension, chronic atrial fibrillation, status post prior pacemaker implantation. She presented to the hospital with symptoms of shortness of breath, cough and wheezing. She denies any chest discomfort, no significant peripheral edema. Clinically the patient has expiratory rhonchi and wheezing consistent with asthmatic bronchitis. She was seen and examined this morning, appears to be coughing somewhat less but continues to have coarse wheezing throughout. Echocardiogram with Doppler study was performed which revealed an ejection fraction of 50-55%, LA is severely dilated. From cardiology's perspective, we'll discontinue the IV Lasix and start the patient on oral diuretics. We will recommend a possible pulmonary evaluation and perhaps some steroids. Sodium today is 146, potassium 3.9, BUN 33, creatinine 1.0. We will repeat a chest x-ray tomorrow. Objective - Vital Signs Vital signs: Vital Signs Temp 99.0 F 01/20/18 11:25 Pulse 74 01/20/18 12:19 Resp 16 01/20/18 12:19 BP 144/64 01/20/18 11:25 Pulse Ox 65 L 01/20/18 12:10 Intake & Output 01/19/18 01/20/18 01/20/18 18:59 06:59 18:59 Intake Total 240 50 360 Output Total 300 0 Balance -60 50 360 Weight 66.4 kg 61.5 kg Intake: Oral 240 50 360 Output: Urine 300 0 Other: Voiding Method Diaper Diaper Diaper # Voids 2 1 3 - Exam PHYSICAL EXAMINATION: HEENT: Head is atraumatic, normocephalic. Pupils equal, round. Neck is supple. There is no elevated jugular venous pressure. HEART EXAMINATION: Heart S1, S2 normal. No murmur or gallop heard. CHEST EXAMINATION: Lungs are clear to auscultation and precussion. No chest wall tenderness is noted on palpation or with deep breathing. ABDOMEN: Soft, nontender. Bowel sounds are heard. No organomegaly noted. EXTREMITIES: 2+ peripheral pulses with no evidence of peripheral edema and no calf tenderness noted. NEUROLOGIC patient is awake, alert and oriented -3. . - Labs CBC & Chem 7: 01/18/18 12:45 01/20/18 06:54 Labs: Abnormal Lab Results - Last 24 Hours (Table) 01/20/18 Range/Units 06:54 Sodium 146 H (137-145) mmol/L BUN 33 H (7-17) mg/dL Creatinine 1.09 H (0.52-1.04) mg/dL Glucose 111 H (74-99) mg/dL Microbiology - Last 24 Hours (Table) 01/18/18 12:45 Blood Culture - Preliminary Blood No Growth after 48 hours Assessment and Plan Plan: Assessment and plan #1 symptoms of cough and wheezing, suggestive mostly of an acute bronchitis, or asthmatic bronchitis. #2 mild congestive heart failure, preserved LV systolic function #3 hypertensive urgency #4 prior pacemaker implantation # 5 chronic persistent atrial fibrillation Plan We will repeat a chest x-ray tomorrow, discontinue the IV Lasix. Recommend a pulmonary consultation and possible steroids if okay with primary. DNP note has been reviewed, I agree with a documented findings and plan of care. Patient was seen and examined.
[2018-01-20] MEDS: FUROSEMIDE 40 MG TAB PO SCH (16:01)
[2018-01-20] MEDS: LATANOPROST 0.005% OPHTH DROPS 2.5 ML BTL BOTH EYES SCH (21:14)
--- NOTE | 2018-01-20 22:54 | PN ---
PROGRESS NOTE DATE OF SERVICE: 01/20/2018 PRESENTING COMPLAINT: Short of breath. INTERVAL HISTORY: This pleasant lady admitted with CHF exacerbation and possibly tracheobronchitis. Breathing is improved. The patient did diurese well and actually the patient did walk out to the hallway. The patient still feels a little bit stuffy, did tolerate some diet. states that the patient is a small eater, always worried about putting on weight. The patient is lying flat on the bed. REVIEW OF SYSTEMS: Done for constitutional, cardiovascular, GI, pulmonary; relevant findings as above. CURRENT MEDICATIONS: Reviewed that include Lasix has been switched to p.o. by Cardiology. EXAMINATION: Temperature 97.7, pulse 50, respiratory 18, blood pressure 158/72 pulse ox 93% on 2L. GENERAL APPEARANCE: Lying in bed, comfortable. EYES: Pupils equal. Conjunctivae normal. HEENT: External appearance of nose and ears normal. Oral cavity normal. NECK: JVD not raised. Mass not palpable. RESPIRATORY: Effort increased. LUNGS: Minimal wheezing. No crackles. CARDIOVASCULAR: First and second sounds normal. Minimal edema. ABDOMEN: Soft, nontender. Liver and spleen not palpable. PSYCHIATRY: Alert and oriented x3. Mood and affect were normal. INVESTIGATIONS: BUN 33, creatinine 1.09. ASSESSMENT: 1. Acute congestive heart failure exacerbation from systolic and diastolic dysfunction, ejection fraction 50%-55%. 2. 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 3. Permanent pacemaker. 4. Coronary artery disease with prior history of coronary artery bypass. 5. Gastroesophageal reflux disease. 6. Essential hypertension. 7. Hyperlipidemia. 8. Primary osteoarthritis in multiple joints. 9. Persistent atrial fibrillation for which the patient is on anticoagulation. 10.Element of acute tracheobronchitis. PLAN: Patient is clinically doing much better, up in the hallway, lying flat. Will continue with bronchodilators. Care was discussed with the . Will add Claritin-D for decongestion. Repeat labs in the morning. MMODL / IJN: [id number] /
[2018-01-20] MEDS: LORATADINE-PSEUDOEPH 5-120 MG 1 EACH TAB.ER.12H PO SCH (23:18)
[2018-01-21 07:32] LABS: Calcium 9.7 mg/dL (8.4-10.2); Potassium 3.6 mmol/L (3.5-5.1)
--- NOTE | 2018-01-21 07:57 | XR ---
EXAMINATION TYPE: XR chest 2V DATE OF EXAM: 01/21/2018 HISTORY: Shortness of breath. COMPARISON: 01/18/2018 TECHNIQUE: Single view of the chest is submitted. FINDINGS: Demonstrated are scattered senescent parenchymal change. There is no evidence for focal infiltrate. The heart is stable. Hilar and mediastinal structures are within normal limits. Degenerative changes are seen of the dorsal spine. IMPRESSION: 1. Chronic changes without evidence for acute pulmonary disease.
[2018-01-21] MEDS: CHOLECALCIFEROL 1,000 UNIT TAB PO SCH (08:58)
[2018-01-21] MEDS: APIXABAN 5 MG TAB PO SCH ×2 (08:59→20:02)
[2018-01-21] MEDS: MAGNESIUM OXIDE 400 MG TAB PO SCH ×3 (08:59→20:03)
[2018-01-21] MEDS: LISINOPRIL 20 MG TAB PO SCH (08:59)
[2018-01-21] MEDS: amLODIPine 2.5 MG TAB PO SCH ×2 (08:59→20:03)
[2018-01-21] MEDS: ASPIRIN 81 MG PO SCH (08:59)
[2018-01-21] MEDS: FUROSEMIDE 40 MG TAB PO SCH ×2 (08:59→16:24)
[2018-01-21] MEDS: LORATADINE-PSEUDOEPH 5-120 MG 1 EACH TAB.ER.12H PO SCH ×2 (08:59→20:03)
[2018-01-21] MEDS: IPRATROPIUM-ALBUTEROL 3 ML NEB INHALATION SCH ×4 (09:10→20:15)
[2018-01-21] MEDS ORDERED: methylPREDNISolone ACETATE 80 MG/ML 1 ML VIAL IM STA (13:01)
--- NOTE | 2018-01-21 13:01 | P.CNPUL ---
History of Present Illness Consult date: 01/21/18 Reason for consult: dyspnea, cough, other Chief complaint: Cough and shortness of breath, acute bronchitis History of present illness: Pulmonary consult dated 01/21/2018 87-year-old female who presented to the emergency department with complaint of increasing cough chest congestion and shortness of breath. There are likely to things going on. She likely has some underlying heart failure. This is based on her chest x-ray. In addition, she likely has some infectious bronchitis with bronchospasm and reactive bronchial inflammation. She has no history of any lung disease. She denies asthma chronic bronchitis emphysema. Really only smoked for a few years. Quit many years back. Anyway, the patient came in with chest congestion coughing wheezing shortness of breath all the wound which is been going on for about 8 days. The patient is feeling better currently. Was told initially that she has some heart failure. Now told that she has acute bronchitis. It's very likely the patient has both. Her echocardiogram shows good overall ejection fraction suggesting diastolic heart failure. 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 The patient also has a history of previous pacemaker insertion. Review of Systems The 12 point review of system is positive for shortness of breath cough chest congestion and minimal phlegm production. No fever or chills. No wheezes. The patient has no previous history of any chronic lung disease. Past Medical History Past Medical History: Coronary Artery Disease (CAD), CVA/TIA, GERD/Reflux, Hyperlipidemia, Hypertension Additional Past Medical History / Comment(s): TIA, varicose veins History of Any Multi-Drug Resistant Organisms: None Reported Past Surgical History: Appendectomy, Coronary Bypass/CABG, Hysterectomy, Joint Replacement, Pacemaker, Tonsillectomy Additional Past Surgical History / Comment(s): CABG 2011, breast biopsy, liat catarats, rt knee replacement Past Anesthesia/Blood Transfusion Reactions: No Reported Reaction Type of Cardiac Device: Permanent Pacemaker Device Placement Date:: 2011 Past Psychological History: Anxiety Smoking Status: Former smoker Past Alcohol Use History: None Reported Additional Past Alcohol Use History / Comment(s): quit smoking 1968, started smoking age 19 Past Drug Use History: None Reported - Past Family History Mother Family Medical History: No Reported History Medications and Allergies Home Medications Medication Instructions Recorded Confirmed Type Aspirin [Adult Low Dose Aspirin EC] 81 mg PO DAILY 11/25/16 01/18/18 History Atorvastatin [Lipitor] 20 mg PO HS 11/25/16 01/18/18 History Cholecalciferol [Vitamin D3] 1,000 unit PO DAILY 11/25/16 01/18/18 History Lisinopril 40 mg PO DAILY 11/25/16 01/18/18 History amLODIPine [Norvasc] 2.5 mg PO BID 11/25/16 01/18/18 History Apixaban [Eliquis] 5 mg PO BID 01/18/18 01/18/18 History D-Mannose 500mg 500 mg PO BID 01/18/18 01/18/18 History Furosemide [Lasix] 20 mg PO DAILY PRN 01/18/18 01/18/18 History Latanoprost [Xalatan 0.005%] 1 drop BOTH EYES HS 01/18/18 01/18/18 History Metoprolol Succinate (ER) [Toprol 150 mg PO DAILY 01/18/18 01/18/18 History Xl] Allergies Allergy/AdvReac Type Severity Reaction Status Date / Time cortisone Allergy face gets Verified 01/18/18 15:59 warm Physical Exam Osteopathic Statement: *. No significant issues noted on an osteopathic structural exam other than those noted in the History and Physical/Consult. Vitals: Vital Signs Temp Pulse Pulse Resp BP Pulse Ox 01/21/18 11:47 97.7 F 60 16 127/71 97 01/21/18 09:20 62 01/21/18 09:10 60 01/21/18 09:01 97.7 F 61 18 160/70 96 01/21/18 04:00 97.9 F 67 16 146/62 96 01/20/18 23:59 61 18 01/20/18 23:57 99.2 F 61 18 177/75 93 L 01/20/18 20:00 99.3 F 62 18 159/70 93 L 01/20/18 16:03 72 01/20/18 16:00 60 18 01/20/18 15:55 72 01/20/18 15:30 97.7 F 60 18 158/72 93 L Intake and Output 01/20/18 01/21/18 01/21/18 22:59 06:59 14:59 Intake Total 240 240 120 Output Total 400 300 800 Balance -160 -60 -680 Intake: Oral 240 240 120 Output: Urine 400 300 800 Other: Voiding Method Diaper Diaper Diaper # Voids 2 Weight 61.3 kg No acute distress, oriented 3. HEENT examination is grossly unremarkable. Mucous membranes are moist. No oral lesions. Neck supple. Full range of motion. No adenopathy thyromegaly or neck vein distention. Cardiovascular examination reveals regular rhythm rate. S1-S2 normal. No S3 or S4. No discernible murmur noted. Lungs reveal diffuse bilateral rhonchi and wheezes. Breath sounds are diminished. She is deftly bronchospastic. No crackles. Breath sounds are equal bilaterally. Slight prolongation is noted.. Abdomen soft bowel sounds are heard. No masses or tenderness. Extremities are intact. No cyanosis clubbing or edema. Skin is without rash or lesion. Neurologic examination is brief but nonfocal. Results - Laboratory Findings CBC and BMP: 01/18/18 12:45 01/21/18 06:43 PT/INR, D-dimer PT 10.8 sec (9.0-12.0) 01/18/18 12:45 INR 1.1 (<1.2) 01/18/18 12:45 D-Dimer 0.49 mg/L FEU (<0.60) 01/18/18 12:45 Abnormal lab findings: Abnormal Labs 01/18/18 01/18/18 01/18/18 12:45 12:45 12:45 Lymphocytes # 0.8 L Sodium BUN 25 H Creatinine Glucose 113 H Magnesium 1.5 L AST 37 H Total Creatine Kinase 142 H CK-MB (CK-2) 2.5 H* Troponin I 01/18/18 01/19/18 01/20/18 21:13 00:32 06:54 Lymphocytes # Sodium 146 H BUN 33 H Creatinine 1.09 H Glucose 111 H Magnesium AST Total Creatine Kinase 166 H 177 H CK-MB (CK-2) 3.4 H* 4.0 H* Troponin I 0.035 H* 01/21/18 06:43 Lymphocytes # Sodium 147 H BUN 42 H Creatinine 1.18 H Glucose 138 H Magnesium AST Total Creatine Kinase CK-MB (CK-2) Troponin I - Diagnostic Findings Chest x-ray: image reviewed (Chest x-ray labs and medications are all evaluated. ) Assessment and Plan Assessment: Assessment Shortness of breath, likely multifactorial in part related to mild heart failure , as well as bronchitis with reactive bronchospasm and bronchial inflammation. No history to suggest significant underlying chronic lung disease at this time. History of CAD with previous bypass grafting History of CVA/TIA History of gastroesophageal reflux disease History of hypertension History of hyperlipidemia Status post permanent pacemaker Multiple previous surgical procedures Plan: Plan dated 01/21/2018 The patient is evaluated. Chest x-rays are evaluated. Labs are evaluated. It appears to me that the patient came in with complaints of shortness of breath. She also had a cough which is mostly nonproductive. It appears that she probably has 2 processes going on including heart failure along with acute bronchitis with reactive bronchospasm and bronchial inflammation. She does cough up occasional phlegm. She smoked for about 20 years. This was remotely. Likely does not have any underlying significant chronic lung disease. Time with Patient: Greater than 30
[2018-01-21] MEDS: predniSONE 20 MG TAB PO SCH (13:44)
--- NOTE | 2018-01-21 15:23 | P.PN ---
Subjective Progress Note Date: 01/21/18 This is a pleasant 87-year-old female with known history of coronary artery disease, hypertension, chronic atrial fibrillation, status post prior pacemaker implantation. She presented to the hospital with symptoms of shortness of breath, cough and wheezing. She denies any chest discomfort, no significant peripheral edema. Clinically the patient has expiratory rhonchi and wheezing consistent with asthmatic bronchitis. She was seen and examined this morning, appears to be coughing somewhat less but continues to have coarse wheezing throughout. Echocardiogram with Doppler study was performed which revealed an ejection fraction of 50-55%, LA is severely dilated. From cardiology's perspective, we'll discontinue the IV Lasix and start the patient on oral diuretics. We will recommend a possible pulmonary evaluation and perhaps some steroids. Sodium today is 146, potassium 3.9, BUN 33, creatinine 1.0. We will repeat a chest x-ray tomorrow. 01/21/2018 Patient seen and examined this morning, overall coughing less. Continues to have significant bilateral wheezing. Hemodynamically stable. Pulmonary will see the patient in consultation today. Objective - Vital Signs Vital signs: Vital Signs Temp 97.7 F 01/21/18 11:47 Pulse 60 01/21/18 12:45 Resp 18 01/21/18 11:47 BP 127/71 01/21/18 11:47 Pulse Ox 97 01/21/18 11:47 Intake & Output 01/20/18 01/21/18 01/21/18 18:59 06:59 18:59 Intake Total 600 240 360 Output Total 700 800 Balance 600 -460 -440 Weight 61.3 kg Intake: Oral 600 240 360 Output: Urine 700 800 Other: Voiding Method Diaper Diaper Diaper # Voids 3 2 - Exam PHYSICAL EXAMINATION: HEENT: Head is atraumatic, normocephalic. Pupils equal, round. Neck is supple. There is no elevated jugular venous pressure. HEART EXAMINATION: Heart S1, S2 normal. No murmur or gallop heard. CHEST EXAMINATION: Lungs are clear to auscultation and precussion. No chest wall tenderness is noted on palpation or with deep breathing. ABDOMEN: Soft, nontender. Bowel sounds are heard. No organomegaly noted. EXTREMITIES: 2+ peripheral pulses with no evidence of peripheral edema and no calf tenderness noted. NEUROLOGIC patient is awake, alert and oriented -3. . - Labs CBC & Chem 7: 05/20/18 12:45 01/21/18 06:43 Labs: Abnormal Lab Results - Last 24 Hours (Table) 01/21/18 Range/Units 06:43 Sodium 147 H (137-145) mmol/L BUN 42 H (7-17) mg/dL Creatinine 1.18 H (0.52-1.04) mg/dL Glucose 138 H (74-99) mg/dL Microbiology - Last 24 Hours (Table) 01/18/18 12:45 Blood Culture - Preliminary Blood No Growth after 72 hours Assessment and Plan Plan: Assessment and plan #1 symptoms of cough and wheezing, suggestive mostly of an acute bronchitis, or asthmatic bronchitis. #2 mild congestive heart failure, preserved LV systolic function #3 hypertensive urgency #4 prior pacemaker implantation # 5 chronic persistent atrial fibrillation Plan From cardiology's perspective, we'll recommend to continue the patient on her current medications are. We appreciate pulmonary input. DNP note has been reviewed, I agree with a documented findings and plan of care. Patient was seen and examined.
--- NOTE | 2018-01-21 18:22 | PN ---
PROGRESS NOTE DATE OF SERVICE: 01/21/2018. PRESENTING COMPLAINT: Congested cough. INTERVAL HISTORY: This patient was admitted with CHF exacerbation, is now improved, also tracheobronchitis. The patient has slight congested cough, bringing some clear sputum. Otherwise, tolerating a diet. Has been out of bed. at the bedside. REVIEW OF SYSTEMS: Done for constitutional, cardiovascular, GI, pulmonary; relevant findings as above. CURRENT MEDICATIONS: Reviewed that include DuoNeb, oral prednisone, Claritin-D, p.o. Lasix. PHYSICAL EXAMINATION: Temperature 97.7, pulse 60, respirations 16, blood pressure 127/71, pulse ox 97% on room air. GENERAL APPEARANCE: Lying in bed awake. EYES: Pupils equal. Conjunctivae normal. HEENT: External appearance of nose and ears normal. Oral cavity normal. NECK: JVD not raised. Mass not palpable. Respiratory effort increased. LUNGS: Some expiratory crackles. CARDIOVASCULAR: 1st and 2nd sounds normal. Minimal edema. ABDOMEN: Soft, nontender. Liver and spleen not palpable. PSYCHIATRY: Alert and oriented x3. Mood and affect normal. INVESTIGATIONS: Potassium 3.6, BUN 42, creatinine 1.18. ASSESSMENT: 1. Acute congestive heart failure exacerbation with systolic and diastolic dysfunction. Ejection fraction 50% to 55%. Clinically euvolemic. 2. 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 3. Permanent pacemaker. 4. Coronary artery disease with prior history of coronary artery bypass. 5. Gastroesophageal reflux disease. 6. Essential hypertension. 7. Hyperlipidemia. 8. Primary osteoarthritis multiple joints. 9. Persistent atrial fibrillation for which patient is getting anticoagulated. 10.Acute tracheobronchitis. PLAN: I did talk to the and the patient again this morning, that an element of acute tracheobronchitis will run its course, most likely viral. Awaiting Pulmonary input. We will have to be careful of the patient's renal function given the current dose of p.o. Lasix to see it does not worsen. Hence repeat labs in the morning and cut back on the same if the renal function worsens. Otherwise patient should be able to be discharged tomorrow with everything else being good. MMODL / IJN: [id number] /
[2018-01-21] MEDS: LATANOPROST 0.005% OPHTH DROPS 2.5 ML BTL BOTH EYES SCH (20:02)
[2018-01-21] MEDS: ATORVASTATIN 20 MG TAB PO SCH (20:03)
[2018-01-22 05:02] VITALS: RESP 18
[2018-01-22 06:39] LABS: Potassium 3.8 mmol/L (3.5-5.1)
[2018-01-22] MEDS: APIXABAN 5 MG TAB PO SCH (08:18)
[2018-01-22] MEDS: FUROSEMIDE 40 MG TAB PO SCH ×2 (08:18→15:52)
[2018-01-22] MEDS: MAGNESIUM OXIDE 400 MG TAB PO SCH ×2 (08:18→15:51)
[2018-01-22] MEDS: amLODIPine 2.5 MG TAB PO SCH (08:18)
[2018-01-22] MEDS: ASPIRIN 81 MG PO SCH (08:18)
[2018-01-22] MEDS: LISINOPRIL 20 MG TAB PO SCH (08:18)
[2018-01-22] MEDS: predniSONE 20 MG TAB PO SCH (08:18)
[2018-01-22] MEDS: LORATADINE-PSEUDOEPH 5-120 MG 1 EACH TAB.ER.12H PO SCH (08:19)
[2018-01-22] MEDS: CHOLECALCIFEROL 1,000 UNIT TAB PO SCH (08:19)
[2018-01-22] MEDS: METOPROLOL SUCCINATE (ER) 50 MG TAB.ER.24H PO SCH (08:19)
[2018-01-22] MEDS: IPRATROPIUM-ALBUTEROL 3 ML NEB INHALATION SCH ×2 (08:48→12:49)
[2018-01-22 12:24] VITALS: BP 180/69; TEMP 97.6
[2018-01-22 12:51] VITALS: PULSE 64
--- NOTE | 2018-01-22 13:35 | P.PN ---
Subjective Progress Note Date: 01/22/18 Principal diagnosis: Shortness of breath cough and congestion. Progress note dated 01/22/2018 This is an 87-year-old female came to the emergency department with complaints of increasing cough chest congestion and shortness of breath. She was coughing up a small amount of phlegm. She was likely thought to have acute bronchitis with reactive bronchospasm and bronchial inflammation. Also a touch of heart failure. She has a history of multiple medical problems including previous bypass grafting for CAD, CVA, GERD, hyperlipidemia, hypertension, varicose veins , TIA, and multiple joint procedures. I gave her Depo-Medrol 80 mg IM and prednisone 40 mg a day. I'm happy to report any distress after 1-1/2 doses, she is much improved. Feels like the cough is a was completely gone. The nurse and her both agree. The patient may be discharged home today. I should also mention to the patient does have a history of previous pacemaker insertion. Objective - Vital Signs Vital signs: Vital Signs Temp 97.6 F 01/22/18 12:21 Pulse 64 01/22/18 13:00 Resp 18 01/22/18 12:21 BP 180/69 01/22/18 12:21 Pulse Ox 96 01/22/18 12:21 Intake & Output 01/21/18 01/22/18 01/22/18 18:59 06:59 18:59 Intake Total 480 125 0 Output Total 800 Balance -320 125 0 Weight 61.5 kg Intake: Oral 480 125 0 Output: Urine 800 Other: Voiding Method Diaper Diaper Diaper # Voids 1 - Exam No acute distress, nonverbal. HEENT examination is grossly unremarkable. Mucous membranes are moist. Neck supple. Full range of motion. No adenopathy thyromegaly or neck vein distention. Midline tracheostomy tube noted. Cardiovascular examination reveals regular rhythm rate. S1-S2 normal. No S3 or S4. No discernible murmur noted. Lungs reveal mostly diminished breath sounds. Not much in the way of adventitious lung sounds. Again the infiltrate that is suspected to be at the right lung base is very minimal at best. Breath sounds are much improved and has better movement of air in and out of the lungs. Abdomen soft bowel sounds are heard. No masses or tenderness. PEG tube noted. Extremities reveal atrophied musculature and severe contractures in all 4 extremities. Skin is without rash or lesion. Neurologic examination cannot be adequately assessed. - Labs CBC & Chem 7: 01/18/18 12:45 01/22/18 05:59 Labs: Abnormal Lab Results - Last 24 Hours (Table) 01/22/18 Range/Units 05:59 Sodium 146 H (137-145) mmol/L BUN 50 H (7-17) mg/dL Creatinine 1.20 H (0.52-1.04) mg/dL Glucose 169 H (74-99) mg/dL Microbiology - Last 24 Hours (Table) 01/18/18 12:45 Blood Culture - Preliminary Blood No Growth after 72 hours Assessment and Plan Assessment: Assessment Shortness of breath, likely multifactorial in part related to mild heart failure , as well as bronchitis with reactive bronchospasm and bronchial inflammation. No history to suggest significant underlying chronic lung disease at this time. The chest congestion and cough are much improved on steroids. History of CAD with previous bypass grafting History of CVA/TIA History of gastroesophageal reflux disease History of hypertension History of hyperlipidemia Status post permanent pacemaker Multiple previous surgical procedures Plan: Plan dated 01/21/2018 The patient is evaluated. Chest x-rays are evaluated. Labs are evaluated. It appears to me that the patient came in with complaints of shortness of breath. She also had a cough which is mostly nonproductive. It appears that she probably has 2 processes going on including heart failure along with acute bronchitis with reactive bronchospasm and bronchial inflammation. She does cough up occasional phlegm. She smoked for about 20 years. This was remotely. Likely does not have any underlying significant chronic lung disease. Plan dated 01/22/2018 The patient is doing much better. Will likely be discharged home today. She is not sure though. States that her cough is much improved and chest congestion and wheezing are improved. She does have history of previous tobacco use for about 20 years and may have some underlying COPD although I doubt it. No prior symptoms. States that she feels well normally. Time with Patient: Less than 30
--- NOTE | 2018-01-22 22:44 | DS ---
DISCHARGE SUMMARY DATE OF ADMISSION: 01/18/2018 DATE OF DISCHARGE: 01/22/2018 FINAL DIAGNOSES: 1. Acute congestive heart failure exacerbation with systolic and diastolic dysfunction, ejection fraction 50% to 55%. 2. 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 3. Permanent pacemaker. 4. Coronary artery disease with prior history of coronary artery bypass. 5. Gastroesophageal reflux disease. 6. Essential hypertension. 7. Hyperlipidemia. 8. Primary osteoarthritis of multiple joints. 9. Persistent atrial fibrillation, for which patient is getting anticoagulated. 10.Acute tracheobronchitis. 11.Acute bronchospasm. HOSPITAL COURSE: This patient presented with shortness of breath and acute tracheobronchitis with bronchospasm, responded well to IV Lasix. Today care was discussed with the patient and her . I expect her respiratory symptoms to linger on for a little bit. Otherwise patient is doing well. Patient's BUN and creatinine are 50 and 1.20. DISCHARGE MEDICATIONS: 1. Aspirin 81 mg daily. 2. Lipitor 20 mg at bedtime. 3. Vitamin D3 1000 units p.o. daily. 4. Lisinopril 40 mg a day. 5. Norvasc 2.5 p.o. b.i.d. 6. Eliquis 5 mg p.o. b.i.d. 7. D - Mannose 500 mg p.o. b.i.d. 8. Xalatan 0.005% one drop to both eyes at bedtime. 9. Toprol XL 150 mg a day. 10.Lasix 40 mg a day. 11.DuoNeb t.i.d. 12.Claritin-D 1 tablet q.12; 6 tablets. 13.Prednisone taper. Follow up with Dr. Dietz in 3 weeks. Follow up with Dr. Rios on February 23, 2018. Follow up with Dr. Karthik Olsen on February 04, 2018. On examination, minimal wheezing. CARDIOVASCULAR: First and second sounds normal. PSYCHIATRY: Alert and oriented x3. Discharge planning more than 35 minutes. MMODL / IJN: [id number] /
== END 2018-01-22 16:39 | disposition home or self-care (01) | DRG 202 ==
LOC: EC 10:56 → 6SEL 14:52
PROVIDERS: ADMIT Hospitalist; ATTEND Hospitalist
DX: J20.8 Acute bronchitis due to other specified organisms (principal); I50.43 Acute on chronic combined systolic (congestive) and diastolic (congestive) heart failure; I11.0 Hypertensive heart disease with heart failure; E78.5 Hyperlipidemia, unspecified; I07.1 Rheumatic tricuspid insufficiency; I16.0 Hypertensive urgency; I25.10 Atherosclerotic heart disease of native coronary artery without angina pectoris; I27.29 Other secondary pulmonary hypertension; I48.2 Chronic atrial fibrillation; I83.90 Asymptomatic varicose veins of unspecified lower extremity; J45.909 Unspecified asthma, uncomplicated; K21.9 Gastro-esophageal reflux disease without esophagitis; M15.9 Polyosteoarthritis, unspecified; Z79.01 Long term (current) use of anticoagulants; Z79.82 Long term (current) use of aspirin; Z79.899 Other long term (current) drug therapy; Z86.73 Personal history of transient ischemic attack (TIA), and cerebral infarction without residual deficits; Z87.891 Personal history of nicotine dependence; Z90.710 Acquired absence of both cervix and uterus; Z95.0 Presence of cardiac pacemaker; Z95.1 Presence of aortocoronary bypass graft; Z96.651 Presence of right artificial knee joint; Z88.8 Allergy status to other drugs, medicaments and biological substances; Z98.42 Cataract extraction status, left eye; Z98.41 Cataract extraction status, right eye
CPT/HCPCS: 36415; 71046; 80048; 80053; 82550; 82553; 83735; 83880; 84484; 85025; 85379; 85610; 85730; 87040; 93005; 93306; 94640; 94760; 96361; 96374; 96375; 96376; 99285

== ENCOUNTER → 2018-04-14 | Outpatient (CLI) | payer MEDICARE ==
--- NOTE | 2018-04-14 14:44 | CT ---
EXAMINATION TYPE: CT abdomen pelvis wo con DATE OF EXAM: 04/14/2018 HISTORY: Diverticulitis Of colon per order. Symptoms for [address] DLP: 670 mGycm. Automated Exposure Control for Dose Reduction was Utilized. TECHNIQUE: CT scan of the abdomen and pelvis is performed without oral or IV contrast. COMPARISON: NONE FINDINGS: Within the limitations of a non-contrast study, the following observations are made. LUNG BASES: Sternal wires are partially imaged. There is partial imaging of cardiomegaly and dual-rey d pacemaker. LIVER/GB: No significant abnormality is appreciated. PANCREAS: No significant abnormality is seen. SPLEEN: No significant abnormality is seen. ADRENALS: No significant abnormality is seen. KIDNEYS: There is 3 mm calculus lower pole level left kidney axial image 31. There is asymmetric denny ical scarring upper to mid pole level right kidney. No hydronephrosis or obstructing ureter calculi a re clearly seen bilaterally. No intraluminal calculi in the bladder are noted. BOWEL: Small hiatal hernia is present. Evaluation of bowel is suboptimal secondary to lack of enteric contrast. There is no suspicious small or large bowel dilatation. There are diverticula in the left and sigmoid colon. There is fairly moderate residual fat stranding and ill-defined fluid surrounding proximal to mid sigmoid colon in the pelvis near axial image 65 consistent with acute diverticulitis. No pneumoperitoneum is identified. No well-formed thick-walled fluid collection or drainable abscess is noted. Tiny amount of free fluid is seen dependently in the pelvis. GENITAL ORGANS: Uterus is surgically absent or markedly atrophic. Small to tiny amount free fluid in pelvic cul-de-sac is present. LYMPH NODES: No greater than 1cm abdominal or pelvic lymph nodes are appreciated. OSSEOUS STRUCTURES: There is severe axial joint space loss and moderate acetabular spurring in both h ips. There is grade 1 anterolisthesis of L4 on L5. Demineralization is present. There is multilevel m oderate spurring in the thoracolumbar spine. There is facet arthropathy lower lumbar levels. Spinal c anal stenosis L4-L5 level is seen axial image 44.. OTHER: There is severe calcified plaque of aorta extending into branch vessels. Suspect surgical clip right groin region axial image 77. IMPRESSION: 1. Suspect persistent moderate acute diverticulitis proximal to mid sigmoid colon. No free air or silva inable abscess identified.
== END | disposition home or self-care (01) ==
LOC: RADCTMAIN 14:10
PROVIDERS: ATTEND Internal Medicine
DX: K57.32 Diverticulitis of large intestine without perforation or abscess without bleeding (principal)
CPT/HCPCS: 74176

== ENCOUNTER 2018-07-09 08:51 | Day surgery (SDC) | payer MEDICARE ==
[2018-07-03 14:50] VITALS: BMI 27.3
[~2018-07-09 08:51] MED LIST changes: -LACTATED RINGERS 1,000 ML IV SCH; +SODIUM CHLORIDE 0.9% 1,000 ML IV SCH
[2018-07-09 09:33] LABS: Basophils % (A) 0 %; Eosinophils # (A) 0.2 k/uL (0-0.7); Eosinophils % (A) 3 %; HCT 36.9 % (34.0-46.0); HGB 11.8 gm/dL (11.4-16.0); Hypochromasia Slight; Lymphocytes # (A) 1.1 k/uL (1.0-4.8); Lymphocytes % (A) 16 %; MCH 30.1 pg (25.0-35.0); MCHC 31.9 g/dL (31.0-37.0); MCV 94.5 fL (80.0-100.0); Mean Platelet Volume 6.7; Monocytes # (A) 0.3 k/uL (0-1.0); Monocytes % (A) 5 %; Neutrophils # (A) 5.2 k/uL (1.3-7.7); Neutrophils % (A) 75 %; Platelet Count 270 k/uL (150-450); RBC 3.91 m/uL (3.80-5.40); RDW 15.9 % (11.5-15.5)
[2018-07-09 09:46] LABS: Calcium 10.2 mg/dL (8.4-10.2); Potassium 4.7 mmol/L (3.5-5.1)
[2018-07-09] MEDS ORDERED: MIDAZOLAM 2 MG/2 ML VIAL ONE ×2 (11:41→12:14)
[2018-07-09] MEDS ORDERED: ceFAZolin 1,000 MG in SODIUM CHLORIDE 0.9% IRRIGATIO 250 ML IRRIGATION ONE (12:00)
[2018-07-09] MEDS ORDERED: ceFAZolin IN SWFI 2 GM/20 ML SYRINGE IVP ONE (12:00)
[2018-07-09] MEDS ORDERED: PROPOFOL 10 MG/ML 20 ML VIAL IV ONE (12:14)
[2018-07-09] MEDS ORDERED: LIDOCAINE 1% INJ 10MG/ML (20 ML MDV) ONE ×2 (12:14→12:37)
[2018-07-09] MEDS ORDERED: fentaNYL (PF) 50 MCG/ML 2 ML AMP ONE (12:14)
[2018-07-09] MEDS ORDERED: LIDOCAINE 1% INJ 10MG/ML (20 ML MDV) SQ ONE (13:06)
[2018-07-09] MEDS ORDERED: ACETAMINOPHEN TAB 325 MG TAB PO PRN (14:04)
[2018-07-09] MEDS ORDERED: HYDROcodone/APAP 5-325MG 1 EACH TAB PO PRN (14:04)
[2018-07-09] MEDS ORDERED: ACETAMINOPHEN IV (For NPO) 1,000 MG in EMPTY BAG 1 BAG IVPB ONE (14:04)
[2018-07-09 15:27] VITALS: RESP 18
[2018-07-09] MEDS: ceFAZolin IN SWFI 2 GM/20 ML SYRINGE IVP SCH (18:45)
[2018-07-09] MEDS: amLODIPine 2.5 MG TAB PO SCH (20:07)
[2018-07-09] MEDS: APIXABAN 5 MG TAB PO SCH (20:07)
[2018-07-09] MEDS ORDERED: D MANNOSE 500 MG PO SCH (21:00)
[2018-07-09] MEDS ORDERED: ATORVASTATIN 20 MG TAB PO SCH (21:00)
[2018-07-09] MEDS ORDERED: LATANOPROST 0.005% OPHTH DROPS 2.5 ML BTL BOTH EYES SCH (21:00)
--- NOTE | 2018-07-09 22:32 | PCN ---
PROCEDURE NOTE Leah Torres is an 88-year-old female patient with a history of complete heart block, status post dual-chamber pacemaker. She was brought in for pacemaker generator change. Patient was brought to the EP lab in a fasting state. Written informed consent was obtained prior to the procedure. The left shoulder area was prepped and draped as per protocol. Lidocaine 1% was used for local anesthesia. A 4 cm incision was made directly over the generator and carried down to the level of the generator. The generator was explanted. The old generator was a [employer] EnRhythm, serial number [id number]. A new generator was implanted. This was an [employer] MRI DR, model number [id number], serial number [id number]. The leads were interrogated and were within normal limits. Pacing function and impedances were stable. The new generator was implanted. The wound was closed in 3 layers and dressed per protocol. RESULTS: Successful dual-chamber pacemaker implantation for complete heart block. Patient tolerated the procedure well without any acute complications. PLAN: IV antibiotics and discharge home tomorrow. Continue current medications. MMODL / IJN: [id number] /
[2018-07-10] MEDS: ceFAZolin IN SWFI 2 GM/20 ML SYRINGE IVP SCH ×3 (01:17→13:08)
[2018-07-10 07:15] VITALS: TEMP 98.4
--- NOTE | 2018-07-10 07:58 | P.DS ---
Providers Attending physician: Adriano Dietz Primary care physician: [facility] Course: Patient is lying comfortably in bed. She has minimal discomfort over the pacemaker site no chest discomfort dizziness lightheadedness. Her blood pressure is been consistently elevated. Heart sounds are normal no murmurs or gallops rhythm is regular, she's 100% paced She is complete heart block Breath sounds are clear no rhonchi no crackles Abdomen soft Extremities warm Impression Permanent atrial fibrillation with RVR status post AV node ablation in the past Patient has permanent pacemaker implanted in his 100% RV paced Yesterday she underwent a pacer generator change on account of normal battery depletion Suggest completion of IV antibiotics and ablating in the hallways increasing the antihypertensive medications and discharge home after completion of IV antibiotics will follow up in the office in 5 days Medication changes include stopping metoprolol and starting carvedilol 12.5 g twice daily All other medications remain unchanged We will see in the office in 5 days Patient Condition at Discharge: Stable Plan - Discharge Summary Discharge Rx Participant: No New Discharge Prescriptions: New Carvedilol [Coreg*] 12.5 mg PO BID #180 tablet Continue Atorvastatin [Lipitor] 20 mg PO HS Aspirin [Adult Low Dose Aspirin EC] 81 mg PO DAILY Cholecalciferol [Vitamin D3] 1,000 unit PO DAILY amLODIPine [Norvasc] 2.5 mg PO BID Latanoprost [Xalatan 0.005%] 1 drop BOTH EYES HS Apixaban [Eliquis] 5 mg PO BID D-Mannose 500mg 500 mg PO BID Lisinopril 40 mg PO DAILY Discontinued Metoprolol Succinate (ER) [Toprol XL] 50 mg PO DAILY Discharge Medication List Aspirin [Adult Low Dose Aspirin EC] 81 mg PO DAILY 11/25/16 [History] Atorvastatin [Lipitor] 20 mg PO HS 11/25/16 [History] Cholecalciferol [Vitamin D3] 1,000 unit PO DAILY 11/25/16 [History] amLODIPine [Norvasc] 2.5 mg PO BID 11/25/16 [History] Apixaban [Eliquis] 5 mg PO BID 01/18/18 [History] D-Mannose 500mg 500 mg PO BID 01/18/18 [History] Latanoprost [Xalatan 0.005%] 1 drop BOTH EYES HS 01/18/18 [History] Lisinopril 40 mg PO DAILY 07/03/18 [History] Carvedilol [Coreg*] 12.5 mg PO BID #180 tablet 07/10/18 [Rx] Follow up Appointment(s)/Referral(s): Adriano Dietz MD [STAFF PHYSICIAN] - 1 Week (Device clinic in [address] Hills 6 months) Activity/Diet/Wound Care/Special Instructions: Keep wound Dry for 5 days Stop metoprolol start carvedilol 12.5 mg twice daily Discharge Disposition: HOME SELF-CARE
[2018-07-10] MEDS: APIXABAN 5 MG TAB PO SCH (08:24)
[2018-07-10] MEDS: amLODIPine 2.5 MG TAB PO SCH (08:24)
[2018-07-10] MEDS ORDERED: CHOLECALCIFEROL 1,000 UNIT TAB PO SCH (09:00)
[2018-07-10] MEDS ORDERED: ASPIRIN 81 MG PO SCH (09:00)
[2018-07-10] MEDS ORDERED: METOPROLOL SUCCINATE (ER) 50 MG TAB.ER.24H PO SCH (09:00)
[2018-07-10] MEDS ORDERED: LISINOPRIL 20 MG TAB PO SCH (09:00)
[2018-07-10 11:15] VITALS: BP 170/67; PULSE 60
== END 2018-07-10 14:01 | disposition home or self-care (01) ==
LOC: CATHEP 08:51 → 1SOBS 13:52 → CATHEP 07-10 14:01
PROVIDERS: ATTEND Internal Medicine Clinical Cardiac Electrophysiology
DX: I48.2 Chronic atrial fibrillation (principal); I44.2 Atrioventricular block, complete; I25.10 Atherosclerotic heart disease of native coronary artery without angina pectoris; I10 Essential (primary) hypertension; E78.5 Hyperlipidemia, unspecified; Z86.73 Personal history of transient ischemic attack (TIA), and cerebral infarction without residual deficits; Z88.8 Allergy status to other drugs, medicaments and biological substances; Z95.1 Presence of aortocoronary bypass graft; Z79.82 Long term (current) use of aspirin; Z79.01 Long term (current) use of anticoagulants; Z95.0 Presence of cardiac pacemaker; Z87.891 Personal history of nicotine dependence
CPT/HCPCS: 33228; 80048; 85025; C1785; J2250; J0690 ×3; J2001; J3010; J2704; 33227

== ENCOUNTER → 2018-08-06 | Outpatient (CLI) | payer MEDICARE ==
--- NOTE | 2018-08-06 16:32 | CT ---
EXAMINATION TYPE: CT chest wo con DATE OF EXAM: 08/06/2018 COMPARISON: 04/14/2018 CT abdomen and pelvis HISTORY: Abnormal findings in lung field CT DLP: 518 mGycm. Automated Exposure Control for Dose Reduction was Utilized. TECHNIQUE: CT scan of the thorax is performed without IV contrast. FINDINGS: LUNGS: There is a small loculated left pleural effusion and trace right pleural effusion with associa wendi compressive left basilar atelectasis and linear bibasilar pleural-parenchymal scarring. Calcific pleural plaquing is seen anteriorly along the left upper lobe indicating prior asbestos exposure. Karthikeyan e minimal subpleural reticulation along the right lung apex likely relates to atelectasis rather than fibrosis and extends along the right lateral mid lung. No pneumothorax is seen. The tracheobronchia l tree is patent. MEDIASTINUM: There is a left-sided cardiac device present. There is four-chamber cardiomegaly and pos t CABG changes the chest with extensive atherosclerosis of the [place] coronary vasculature there is e nlargement of the main pulmonary artery measuring up to 3.6 cm suggestive of underlying pulmonary art erial hypertension. Ascending thoracic aorta is within normal limits measuring 3.4 cm. No pericardial effusion Lack of IV contrast is noted to limit evaluation for mediastinal and especially hilar adeno noe. There are no definitive greater than 1 cm hilar or mediastinal lymph nodes. OTHER: There is a small hiatal hernia present. Right renal atrophy is seen. Extensive atherosclerosis of the upper abdominal aorta that is visualized as well as its branch vessels are seen. Few colonic diverticula are incidentally noted. Median sternotomy wires are present. Moderate multilevel degenera tive change of the thoracic spine is seen. IMPRESSION: 1. Small loculated left pleural effusion and trace right pleural effusion. Findings could be on the b asis of congestive heart failure as there is a four-chamber cardiomegaly and prior cardiac surgery. 2. Calcified pleural plaque indicative of prior asbestos exposure. 3. Extensive atherosclerosis of the [place] thoracic and visualized upper abdominal aorta. 4. Enlargement main pulmonary artery suggesting underlying pulmonary arterial hypertension.
== END | disposition home or self-care (01) ==
LOC: RADCTMAIN 14:44
PROVIDERS: ATTEND Internal Medicine
DX: J90 Pleural effusion, not elsewhere classified (principal); J92.9 Pleural plaque without asbestos
CPT/HCPCS: 36415; 71250; 82565; 84520

== ENCOUNTER → 2018-08-18 | Outpatient (CLI) | payer MEDICARE | END | disposition home or self-care (01) | LOC: CPPFTMAIN 10:27 | PROVIDERS: ATTEND Internal Medicine | DX: R94.2 Abnormal results of pulmonary function studies (principal); R06.00 Dyspnea, unspecified | CPT/HCPCS: 94060; 94726; 94729 ==

== ENCOUNTER 2018-08-23 03:57 | Observation (INO) | payer MEDICARE ==
[2018-08-23 04:06] LABS: Glucose,Whole Blood 192 mg/dL (75-99)
[2018-08-23 04:31] LABS: Anisocytosis Slight; Basophils % (A) 0 %; Eosinophils # (A) 0.3 k/uL (0-0.7); Eosinophils % (A) 3 %; HCT 33.7 % (34.0-46.0); HGB 10.4 gm/dL (11.4-16.0); Hypochromasia Slight; Lymphocytes # (A) 1.6 k/uL (1.0-4.8); Lymphocytes % (A) 17 %; MCH 29.2 pg (25.0-35.0); MCHC 30.8 g/dL (31.0-37.0); MCV 94.6 fL (80.0-100.0); Mean Platelet Volume 6.7; Monocytes # (A) 0.5 k/uL (0-1.0); Monocytes % (A) 5 %; Neutrophils # (A) 6.6 k/uL (1.3-7.7); Neutrophils % (A) 72 %; Platelet Count 274 k/uL (150-450); RBC 3.56 m/uL (3.80-5.40); RDW 16.3 % (11.5-15.5); WBC 9.1 k/uL (3.8-10.6)
--- NOTE | 2018-08-23 04:32 | ED ---
Chest Pain HPI - General Chief Complaint: Chest Pain Stated Complaint: Chest pain Time Seen by Provider: 08/23/18 04:02 Source: patient Mode of arrival: EMS Limitations: no limitations - History of Present Illness Initial Comments: This patient is a 88-year-old woman who presents to be evaluated for dyspnea as well as nausea that is been going on since early in the day. Patient states that after trying for the early part of tonight she was not able to get sleep so she called EMS and they brought her here. The patient does not have any chest pain. She states that the dyspnea is mainly if she attempts to get up and move around the house where she is lying flat. If she does remain sitting still her breathing is not bad. Patient denies diaphoresis. MD Complaint: other Onset/Timin -: days(s) Onset: during rest Consistency: constant Improves With: nothing Worsens With: nothing Anginal Symptoms: nausea, dyspnea Treatments Prior to Arrival: none - Related Data Home Medications Medication Instructions Recorded Confirmed Aspirin [Adult Low Dose Aspirin EC] 81 mg PO DAILY 11/25/16 08/23/18 Atorvastatin [Lipitor] 20 mg PO HS 11/25/16 08/23/18 Cholecalciferol [Vitamin D3] 1,000 unit PO DAILY 11/25/16 08/23/18 amLODIPine [Norvasc] 2.5 mg PO TID 11/25/16 08/23/18 Apixaban [Eliquis] 5 mg PO BID 01/18/18 08/23/18 D-Mannose 500mg 500 mg PO BID 01/18/18 08/23/18 Latanoprost [Xalatan 0.005%] 1 drop BOTH EYES 01/18/18 08/23/18 Budesonide/Formoterol Fumarate 1 puff INHALATION RT-DAILY 08/23/18 08/23/18 [Symbicort 80-4.5 Mcg Inhaler] Levalbuterol Nebulized [Xopenex 1.25 mg INHALATION RT-BID PRN 08/23/18 08/23/18 Nebulized] Lisinopril [Zestril] 20 mg PO DAILY 08/23/18 08/23/18 Metoprolol Succinate (ER) [Toprol 50 mg PO DAILY 08/23/18 08/23/18 Xl] Allergies Allergy/AdvReac Type Severity Reaction Status Date / Time cortisone Allergy face gets Verified 08/23/18 07:13 warm Review of Systems ROS Statement: Those systems with pertinent positive or pertinent negative responses have been documented in the HPI. ROS Other: All systems not noted in ROS Statement are negative. Constitutional: Denies: fever, chills Respiratory: Reports: dyspnea. Denies: cough Cardiovascular: Reports: dyspnea on exertion, orthopnea. Denies: chest pain, palpitations, edema, syncope Gastrointestinal: Reports: nausea. Denies: abdominal pain, vomiting, diarrhea Genitourinary: Denies: dysuria Musculoskeletal: Denies: back pain Skin: Denies: rash Neurological: Denies: headache, weakness, numbness EKG Findings - EKG Comments: EKG Findings:: The patient's 12-lead ECG appears to show a ventricular paced rhythm there is a PVC present. The rate is proximal 63 bpm. The ECG is unchanged versus the comparison ECG. Past Medical History Past Medical History: GERD/Reflux Additional Past Medical History / Comment(s): SEE DR MAJOR H&P, varicose veins History of Any Multi-Drug Resistant Organisms: None Reported Past Surgical History: Appendectomy, Coronary Bypass/CABG, Hysterectomy, Joint Replacement, Pacemaker, Tonsillectomy Additional Past Surgical History / Comment(s): CABG 2011, breast biopsy, liat catarats, rt knee replacement Past Anesthesia/Blood Transfusion Reactions: No Reported Reaction Type of Cardiac Device: Permanent Pacemaker Device Placement Date:: 2011 Past Psychological History: Anxiety Smoking Status: Former smoker Past Alcohol Use History: None Reported Past Drug Use History: None Reported - Past Family History Mother Family Medical History: No Reported History General Exam Limitations: no limitations General appearance: alert, in distress Head exam: Present: atraumatic, normocephalic Eye exam: Present: normal appearance. Absent: scleral icterus, conjunctival injection Neck exam: Present: normal inspection, full ROM Respiratory exam: Present: respiratory distress (Patient is tachypneic and currently on BiPAP), wheezes, rhonchi, accessory muscle use. Absent: chest wall tenderness Cardiovascular Exam: Present: regular rate, normal rhythm, normal heart sounds. Absent: systolic murmur, diastolic murmur, rubs GI/Abdominal exam: Present: soft. Absent: distended, tenderness, guarding, rebound, mass Extremities exam: Present: normal inspection, normal capillary refill. Absent: calf tenderness Back exam: Present: normal inspection. Absent: CVA tenderness (R), CVA tenderness (L) Neurological exam: Present: alert Psychiatric exam: Present: anxious Skin exam: Present: intact, normal color, diaphoretic. Absent: rash Course Vital Signs 08/23/18 08/23/18 08/23/18 04:01 05:49 08:23 Temperature 97.8 F Pulse Rate 60 60 62 Respiratory 18 17 18 Rate Blood Pressure 154/70 157/65 144/68 O2 Sat by Pulse 94 L 98 98 Oximetry 08/23/18 08/23/18 08/23/18 09:56 10:00 11:00 Temperature Pulse Rate 60 60 59 L Respiratory 20 18 18 Rate Blood Pressure 168/59 168/59 158/84 O2 Sat by Pulse 99 99 99 Oximetry 08/23/18 08/23/18 12:00 13:00 Temperature 97.9 F Pulse Rate 60 59 L Respiratory 19 20 Rate Blood Pressure 175/63 167/67 O2 Sat by Pulse 100 99 Oximetry Chest Pain [facility] Patient is 88-year-old woman brought by ambulance to be evaluated for respiratory distress. She is continued on BiPAP here. Clinically the patient does appear to have CHF as the main component or dyspnea. The patient's chest x -ray consistent with that diagnosis. The patient did begin to respond well to treatment. She is admitted for further evaluation and treatment. Critical Care Time Critical Care Time: Yes (40 minutes) Disposition Clinical Impression: CHF (congestive heart failure) Disposition: ADMITTED IP TO THIS [facility] Condition: Fair Is patient prescribed a controlled substance at d/c from ED?: No
[2018-08-23 04:42] LABS: Albumin 3.4 g/dL (3.5-5.0); Magnesium 1.5 mg/dL (1.6-2.3); Partial Thromboplastin Time 22.9 sec (22.0-30.0); Potassium 4.2 mmol/L (3.5-5.1); Prothrombin Time 10.9 sec (9.0-12.0); Total Bilirubin 0.8 mg/dL (0.2-1.3); Total Protein 6.5 g/dL (6.3-8.2)
--- NOTE | 2018-08-23 04:51 | XR ---
EXAMINATION TYPE: XR chest 1V portable DATE OF EXAM: 08/23/2018 COMPARISON: 01/21/2018 HISTORY: Chest pain TECHNIQUE: Single frontal view of the chest is obtained. FINDINGS: Heart is enlarged. There is pulmonary vascular congestion. There is some blunting of costo phrenic angles. There is left axillary pacemaker with the lead tips in right ventricle. There are chris rnal wires. IMPRESSION: There is probably mild congestive heart failure that is new compared to last exam.
[2018-08-23 04:56] LABS: Creatine Kinase 49 U/L (30-135)
[2018-08-23 05:09] LABS: Creatine Kinase MB 1.6 ng/mL (0.0-2.4); Troponin I <0.012 ng/mL (0.000-0.034)
[2018-08-23] MEDS: FUROSEMIDE 10 MG/ML 4 ML VIAL IV SCH ×2 (07:20→18:15)
[2018-08-23 13:41] LABS: Creatine Kinase MB 2.1 ng/mL (0.0-2.4); Troponin I 0.014 ng/mL (0.000-0.034)
[2018-08-23 20:20] LABS: Troponin I 0.016 ng/mL (0.000-0.034)
[2018-08-23] MEDS ORDERED: ALBUTEROL NEBULIZED 2.5 MG/3 ML INHALATION PRN (21:11)
[2018-08-23] MEDS ORDERED: ATORVASTATIN 20 MG TAB PO SCH (21:15)
[2018-08-23] MEDS ORDERED: LATANOPROST 0.005% OPHTH DROPS 2.5 ML BTL BOTH EYES SCH (21:15)
[2018-08-23] MEDS: APIXABAN 5 MG TAB PO SCH (21:29)
[2018-08-23] MEDS: amLODIPine 2.5 MG TAB PO SCH (21:29)
[2018-08-23] MEDS: IPRATROPIUM-ALBUTEROL 3 ML NEB INHALATION SCH (23:24)
--- NOTE | 2018-08-23 23:51 | HP ---
HISTORY AND PHYSICAL DATE OF ADMISSION: 08/23/2018 DATE OF SERVICE: 08/23/2018. PRESENTING COMPLAINT: Short of breath. HISTORY OF PRESENTING COMPLAINT: Pleasant 88-year-old patient of Dr. 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 Chronic stable medical conditions include GERD, hypertension, hyperlipidemia, varicose veins, osteoarthritis, and coronary artery disease with coronary artery bypass 7 years ago and a permanent pacemaker. The patient initially started off with a cold that she had for about a week and then had sinus symptoms with wheezing. For a week has had a slight cough. No obvious edema. No fever, questionable chills. Bowels been okay. Urine has been okay. Appetite has been okay. As she was quite short of breath and clear sputum, she presented to the hospital. In the ER, patient is found to be in congestive heart failure, started on IV Lasix to which she is feeling better. REVIEW OF SYSTEMS: CONSTITUTIONAL: Tired. HEENT none. RESPIRATORY as above. CARDIOVASCULAR as above. GASTROINTESTINAL heartburn. GENITOURINARY: Incontinence. DERMATOLOGICAL, HEMATOLOGIC, LYMPHATIC: none. PSYCHIATRY none. NEUROLOGICAL none. MUSCULOSKELETAL: Pain in different joints. PAST MEDICAL HISTORY: Of coronary artery disease with bypass, TIA, GERD, hyperlipidemia, hypertension, varicose veins, vertigo, glaucoma, and congestive heart failure. PAST SURGICAL HISTORY: Appendectomy, coronary bypass, hysterectomy, joint replacement, pacemaker, tonsillectomy, bypass in 2011, bilateral cataract, right knee replacement, permanent pacemaker in 2011. SOCIAL HISTORY: Patient has smoked for 20 years, stopped in 1968. . FAMILY HISTORY: Reviewed noncontributory to presentation. HOME MEDICATIONS: 1. Xopenex 1.25 b.i.d. p.r.n. 2. Symbicort 80/4.5 one puff daily. 3. Norvasc 2.5 p.o. t.i.d. 4. Toprol-XL 50 mg a day. 5. Zestril 20 mg a day. 6. Xalatan 0.005 1 drop both eyes q.h.s. 7. D mannose 500 mg p.o. b.i.d. 8. Vitamin D3 1000 units p.o. daily. 9. Lipitor 20 mg q.h.s. 10.Aspirin 81 mg p.o. daily. 11.Eliquis 5 mg b.i.d. ALLERGIES: TO CORTISONE. PHYSICAL EXAMINATION: VITAL SIGNS: Vital signs on presentation, temperature 97.8, pulse 60, respiratory 18, blood pressure 150/70, pulse ox 94 percent on room air. GENERAL APPEARANCE: Average built, BMI 25.5, lying in bed, not in distress. EYES: Pupils are equal. Conjunctivae normal. HEENT: External appearance of nose and ears normal. Oral cavity normal. NECK: JVD possibly raised. Mass not palpable. RESPIRATORY: Effort increased. LUNGS: Decreased breath sounds. CARDIOVASCULAR: Heart sounds irregular. No edema. ABDOMEN: Soft, nontender. Liver and spleen not palpable. LYMPHATICS: No lymph nodes palpable in the neck and axillae. PSYCHIATRY: Alert and oriented x3. Mood and affect normal. NEUROLOGICAL: Pupils equal. Cranial nerves grossly intact. Power and sensation grossly intact. MUSCULOSKELETAL: Evidence of osteoarthritis especially in the hands. INVESTIGATIONS: White count 9.1, hemoglobin 10.4, potassium 4.2, BUN 25, creatinine 1.08, glucose 178. Troponin less than 0.012, 0.014, 0.016. EKG shows ventricular paced rhythm personally reviewed by me. Chest x-ray film personally reviewed by me shows cardiomegaly and venous prominence. The patient's 2D echocardiogram in December of this year showed EF of 50- 55 percent, moderate pulmonic hypertension. ASSESSMENT: 1. Acute on chronic congestive heart failure from diastolic dysfunction. Ejection fraction 55-60 percent. 2. Permanent pacemaker. 3. Coronary artery disease with history of coronary artery bypass. 4. Gastroesophageal reflux disease. 5. Essential hypertension. 6. Hyperlipidemia. 7. Primary osteoarthritis. 8. Persistent atrial fibrillation for which patient is chronically on anticoagulation. PLAN: Home medications are resumed. Patient is put on IV Lasix. She is already feeling better with the same. Follow electrolytes closely. Cardiology is consulted. The patient's proBNP was 3930. Repeat chest x-ray, electrolytes in the morning. Copy to Dr. Karthik Olsen. MMHELENL / ZULEMA: [id number] /
[2018-08-24] MEDS: FUROSEMIDE 10 MG/ML 4 ML VIAL IV SCH (06:09)
[2018-08-24 07:32] LABS: Calcium 9.8 mg/dL (8.4-10.2)
[2018-08-24 07:33] LABS: Potassium 4.4 mmol/L (3.5-5.1)
[2018-08-24] MEDS ORDERED: SYMBICORT 80-4.5 MCG INHALER INHALATION SCH (08:00)
[2018-08-24] MEDS: amLODIPine 2.5 MG TAB PO SCH (08:44)
[2018-08-24] MEDS: APIXABAN 5 MG TAB PO SCH (08:44)
[2018-08-24] MEDS ORDERED: LISINOPRIL 20 MG TAB PO SCH (09:00)
[2018-08-24] MEDS ORDERED: METOPROLOL SUCCINATE (ER) 50 MG TAB.ER.24H PO SCH (09:00)
[2018-08-24] MEDS ORDERED: CHOLECALCIFEROL 1,000 UNIT TAB PO SCH (09:00)
[2018-08-24] MEDS ORDERED: ASPIRIN 81 MG PO SCH (09:00)
[2018-08-24] MEDS: IPRATROPIUM-ALBUTEROL 3 ML NEB INHALATION SCH ×2 (09:40→13:46)
[2018-08-24 11:28] VITALS: BP 170/77; PULSE 65; RESP 17; TEMP 98.4
[2018-08-24 12:44] VITALS: BMI 23.6
--- NOTE | 2018-08-24 15:36 | P.CRDCN ---
History of Present Illness Consult date: 08/24/18 History of present illness: This is a 88-year-old female with history of hypertension, dyslipidemia, and also permanent pacemaker implantation who was admitted to the hospital now with complaints of intermittent shortness of breath. Patient chest x-ray was suggestive of mild CHF. Her BNP was elevated. Patient was treated with IV Lasix with improvement of her symptoms. Patient uses Lasix on when necessary basis. Patient wants to go home. She is advised to take Lasix 40 mg every day along with potassium 10 mEq. Her echo Cardigan showed normal LV function. EKG shows rhythm. Lab values showed a mild anemia. Normal renal function. Troponins are within normal limits. ProBNP is 3930. Her albumin is low. Patient may be discharged home. Follow-up with Dr. Dietz as an outpatient. Review of Systems As per the chart Past Medical History Past Medical History: GERD/Reflux Additional Past Medical History / Comment(s): SEE DR DIETZ H&P, varicose veins History of Any Multi-Drug Resistant Organisms: None Reported Past Surgical History: Appendectomy, Coronary Bypass/CABG, Hysterectomy, Joint Replacement, Pacemaker, Tonsillectomy Additional Past Surgical History / Comment(s): CABG 2011, breast biopsy, liat catarats, rt knee replacement Past Anesthesia/Blood Transfusion Reactions: No Reported Reaction Type of Cardiac Device: Permanent Pacemaker Device Placement Date:: 2011 Past Psychological History: Anxiety Smoking Status: Former smoker Past Alcohol Use History: None Reported Past Drug Use History: None Reported - Past Family History Mother Family Medical History: No Reported History Medications and Allergies Home Medications Medication Instructions Recorded Confirmed Type Aspirin [Adult Low Dose Aspirin EC] 81 mg PO DAILY 11/25/16 08/23/18 History Atorvastatin [Lipitor] 20 mg PO HS 11/25/16 08/23/18 History Cholecalciferol [Vitamin D3] 1,000 unit PO DAILY 11/25/16 08/23/18 History amLODIPine [Norvasc] 2.5 mg PO TID 11/25/16 08/23/18 History Apixaban [Eliquis] 5 mg PO BID 01/18/18 08/23/18 History D-Mannose 500mg 500 mg PO BID 01/18/18 08/23/18 History Latanoprost [Xalatan 0.005%] 1 drop BOTH EYES HS 01/18/18 08/23/18 History Budesonide/Formoterol Fumarate 1 puff INHALATION RT-DAILY 08/23/18 08/23/18 History [Symbicort 80-4.5 Mcg Inhaler] Levalbuterol Nebulized [Xopenex 1.25 mg INHALATION RT-BID PRN 08/23/18 08/23/18 History Nebulized] Lisinopril [Zestril] 20 mg PO DAILY 08/23/18 08/23/18 History Metoprolol Succinate (ER) [Toprol 50 mg PO DAILY 08/23/18 08/23/18 History XL] Furosemide [Lasix] 40 mg PO DAILY #30 tab 08/24/18 Rx Potassium Chloride ER [K-Dur 10] 10 meq PO DAILY #30 tab.er.prt 08/24/18 Rx Allergies Allergy/AdvReac Type Severity Reaction Status Date / Time cortisone Allergy face gets Verified 08/23/18 07:13 warm Physical Exam Vitals: Vital Signs Temp Pulse Pulse Resp BP Pulse Ox 08/24/18 11:26 98.4 F 65 17 170/77 95 08/24/18 09:52 62 08/24/18 09:41 64 08/24/18 08:00 98 F 60 18 165/70 95 08/24/18 04:00 98.0 F 60 18 133/68 100 08/23/18 23:09 60 19 08/23/18 23:08 97.9 F 60 19 179/67 97 08/23/18 20:00 98.1 F 60 18 170/72 99 08/23/18 17:15 63 20 141/60 100 08/23/18 16:50 99 Intake and Output 08/24/18 08/24/18 08/24/18 06:59 14:59 22:59 Intake Total 862 Output Total 3 800 Balance -3 62 Intake: Oral 862 Output: Urine 3 800 Other: Voiding Method Toilet Toilet # Voids 1 Weight 64.5 kg 64.5 kg GENERAL EXAM: Patient is alert and oriented and doesn't appear to be in any acute distress HEENT: Normocephalic. Normal reaction of pupils, equal size, normal range of extraocular motion. No erythema or exudates in the throat. NECK: No masses, no nuchal rigidity. CHEST: No chest wall deformity. LUNGS: Equal air entry with no crackles or wheeze. HEART: S1 and S2 normal . Regular rhythm ABDOMEN: No hepatosplenomegaly, normal bowel sounds, no guarding or rigidity. SKIN: No rashes CENTRAL NERVOUS SYSTEM: No focal deficits. EXTREMITIES: No cyanosis, clubbing or edema. Results 08/23/18 04:05 08/24/18 06:49 Cardiac Enzymes 08/23/18 Range/Units 19:24 CK-MB (CK-2) 2.0 (0.0-2.4) ng/mL Troponin I 0.016 (0.000-0.034) ng/mL Comprehensive Metabolic Panel 08/24/18 Range/Units 06:49 Sodium 140 (137-145) mmol/L Potassium 4.4 (3.5-5.1) mmol/L Chloride 109 H (98-107) mmol/L Carbon Dioxide 23 (22-30) mmol/L BUN 32 H (7-17) mg/dL Creatinine 1.29 H (0.52-1.04) mg/dL Glucose 106 H (74-99) mg/dL Calcium 9.8 (8.4-10.2) mg/dL Intake and Output 08/24/18 08/24/18 08/24/18 06:59 14:59 22:59 Intake Total 862 Output Total 3 800 Balance -3 62 Intake: Oral 862 Output: Urine 3 800 Other: Voiding Method Toilet Toilet # Voids 1 Weight 64.5 kg 64.5 kg Patient Weight 08/25/18 06:59 Weight 64.5 kg 08/23/18 04:05 08/24/18 06:49 EKG Interpretations (text) Pacer rhythm Assessment and Plan (1) Acute on chronic diastolic CHF (congestive heart failure) Status: Acute Code(s): I50.33 - ACUTE ON CHRONIC DIASTOLIC (CONGESTIVE) HEART FAILURE SNOMED Code(s): 464606374 (2) CAD (coronary artery disease) Status: Acute Code(s): I25.10 - ATHSCL HEART DISEASE OF [place] CORONARY ARTERY W/O ANG PCTRS SNOMED Code(s): 91442752 (3) Chronic atrial fibrillation Status: Acute Code(s): I48.2 - CHRONIC ATRIAL FIBRILLATION SNOMED Code(s): 707263895 (4) Pacemaker Status: Acute Code(s): Z95.0 - PRESENCE OF CARDIAC PACEMAKER SNOMED Code(s) : 541068548 Plan: Patient is feeling much better today. She could be discharged home on diuretics and potassium supplement. Rest of the medication to be continued. Follow-up with Dr. Dietz
[2018-08-25] MEDS ORDERED: POTASSIUM CHLORIDE ER 10 MEQ TAB.ER.PRT PO SCH (09:00)
[2018-08-25] MEDS ORDERED: FUROSEMIDE 40 MG TAB PO SCH (09:00)
--- NOTE | 2018-08-25 12:33 | DS ---
DISCHARGE SUMMARY DATE OF ADMISSION: 08/22/2018. DATE OF DISCHARGE: 08/24/2018. FINAL DIAGNOSES: 1. Acute on chronic congestive heart failure exacerbation from diastolic dysfunction. Ejection fraction 55% to 60%. 2. Permanent pacemaker. 3. Coronary artery disease with history of coronary artery bypass. 4. Gastroesophageal reflux disease. 5. Essential hypertension. 6. Hyperlipidemia. 7. Primary osteoarthritis. 8. Persistent atrial fibrillation, patient chronically on anticoagulation. HOSPITAL COURSE: This patient presented with shortness of breath, found to be in CHF exacerbation. Responded well to diuretics. Doing much better. PHYSICAL EXAMINATION: Temperature 98.4, pulse 65, respiration 17, pulse ox 95% on room air. Lungs improved air entry. INVESTIGATIONS: BUN 32, creatinine 1.29. CONSULTATION: Dr. Florentino from Cardiology okayed the patient to be discharged. DISCHARGE MEDICATIONS: 1. Aspirin 81 mg a day. 2. Lipitor 20 mg at bedtime. 3. Vitamin D3, 1000 units p.o. daily. 4. Norvasc 2.5 p.o. t.i.d. 5. Eliquis 5 mg p.o. b.i.d. 6. b.i.d. 7. Xalatan 0.005% 1 drop to both eyes at bedtime. 8. Symbicort 1 puff inhalation daily. 9. Xopenex 1.25 b.i.d. p.r.n. 10.Zestril 20 mg p.o. daily. 11.Toprol-XL 50 mg p.o. daily. 12.Lasix 40 mg p.o. daily. 13.Potassium 10 mEq p.o. daily. FOLLOWUP: 1. Followup with Dr. Dietz in 1 week. 2[address]. Olsen in 1 week. 3. BMP in 1 week. MMODL / IJN: [id number] /
== END 2018-08-24 15:23 | disposition home or self-care (01) ==
LOC: EC 03:57 → 3SCARD 06:57
PROVIDERS: ADMIT Hospitalist; ATTEND Hospitalist
DX: I11.0 Hypertensive heart disease with heart failure (principal); I48.1 Persistent atrial fibrillation; I50.33 Acute on chronic diastolic (congestive) heart failure; D64.9 Anemia, unspecified; E78.5 Hyperlipidemia, unspecified; H40.9 Unspecified glaucoma; I25.10 Atherosclerotic heart disease of native coronary artery without angina pectoris; K21.9 Gastro-esophageal reflux disease without esophagitis; M19.91 Primary osteoarthritis, unspecified site; Z98.42 Cataract extraction status, left eye; Z98.41 Cataract extraction status, right eye; Z79.01 Long term (current) use of anticoagulants; Z79.51 Long term (current) use of inhaled steroids; Z79.82 Long term (current) use of aspirin; Z79.899 Other long term (current) drug therapy; Z86.73 Personal history of transient ischemic attack (TIA), and cerebral infarction without residual deficits; Z90.710 Acquired absence of both cervix and uterus; Z95.0 Presence of cardiac pacemaker; Z95.1 Presence of aortocoronary bypass graft; Z96.651 Presence of right artificial knee joint; Z87.891 Personal history of nicotine dependence
CPT/HCPCS: 96376 ×2; 96374; 99291; 36415; 94640 ×2; 94760; 93005; 83880 ×2; 80053; 80048; 82150; 82550; 82553; 83690; 83735; 84484; 85025; 85610; 85730; 71045; G0378 ×2; J1940 ×2; 99285

== ENCOUNTER → 2019-06-03 | Outpatient (CLI) | payer MEDICARE | END | disposition home or self-care (01) | LOC: RADUSWWP 10:16 | PROVIDERS: ATTEND Internal Medicine | DX: M79.604 Pain in right leg (principal) | CPT/HCPCS: 93922 ==

== ENCOUNTER 2019-08-27 15:04 | Observation (INO) | payer MEDICARE ==
[2019-08-27 15:21] LABS: Glucose,Whole Blood 118 mg/dL (75-99)
[2019-08-27] MEDS ORDERED: SODIUM CHLORIDE 0.9% 500 ML 500 ML IV STA (15:27)
--- NOTE | 2019-08-27 16:06 | XR ---
EXAMINATION TYPE: XR chest 2V DATE OF EXAM: 08/27/2019 COMPARISON: 08/23/2018 HISTORY: Shortness of breath TECHNIQUE: Frontal and lateral views of the chest are obtained. FINDINGS: Scattered senescent parenchymal changes noted. Hyperinflation compatible with COPD. No evidence for infiltrate. No evidence for atelectasis. There is evidence of cardiomegaly. Pulmonary venous congestion. No overt failure. Mediastinal structures are stable and grossly unremarkable. No evidence for hilar prominence. Degenerative changes dorsal spine. IMPRESSION: 1. There is evidence of cardiomegaly. Pulmonary venous congestion. No overt failure.
[2019-08-27 16:11] LABS: Basophils % (A) 1 %; Eosinophils # (A) 0.2 k/uL (0-0.7); Eosinophils % (A) 3 %; HCT 38.5 % (34.0-46.0); HGB 12.4 gm/dL (11.4-16.0); Hypochromasia Slight; Lymphocytes # (A) 1.5 k/uL (1.0-4.8); Lymphocytes % (A) 22 %; MCH 29.7 pg (25.0-35.0); MCHC 32.1 g/dL (31.0-37.0); MCV 92.4 fL (80.0-100.0); Monocytes # (A) 0.4 k/uL (0-1.0); Monocytes % (A) 6 %; Neutrophils # (A) 4.4 k/uL (1.3-7.7); Neutrophils % (A) 66 %; Platelet Count 270 k/uL (150-450); RBC 4.17 m/uL (3.80-5.40); RDW 15.2 % (11.5-15.5); WBC 6.7 k/uL (3.8-10.6)
--- NOTE | 2019-08-27 16:15 | CT ---
EXAMINATION TYPE: CT brain wo con for TPA DATE OF EXAM: 08/27/2019 COMPARISON: 06/25/2016 HISTORY: Neuro deficit, acute, stroke suspected Unenhanced CT of the brain was performed. The ventricles, basal cisterns and sulci overlying the cerebral convexities demonstrate mild enlargem ent. There is no evidence for intracranial hemorrhage or sulcal effacement. There is decreased attenuation about the periventricular white matter and deep white matter of both c erebral hemispheres, compatible with chronic small vessel ischemia. Differential diagnosis does inclu de demyelination. No mass effects are seen.No midline shift. Osseous calvarium is intact. If symptoms persist consider MRI. IMPRESSION: 1. Age related atrophic and chronic small vessel ischemic change without acute intracranial process s een at this time.
[2019-08-27 16:17] LABS: Amorphous Sediment,Urine Rare /hpf; Appearance,Urine Cloudy (Clear); Bilirubin,Urine Negative (Negative); Blood,Urine Negative (Negative); Color,Urine Yellow; Glucose,Urine (UA) Negative (Negative); Hyaline Casts,Urine 6 /lpf (0-2); INR 0.9 (<1.2); Ketones,Urine Negative (Negative); Leukocyte Esterase,Urine Moderate (Negative); Mucus,Urine Rare /hpf; Nitrite,Urine Negative (Negative); Partial Thromboplastin Time 22.6 sec (22.0-30.0); Protein,Urine Trace (Negative); Prothrombin Time 9.9 sec (9.0-12.0); RBC,Urine 3 /hpf (0-5); Specific Gravity,Urine 1.022 (1.001-1.035); Squamous Epithelial Cell,Urine 1 /hpf (0-4); Urobilinogen,Urine <2.0 mg/dL (<2.0); WBC,Urine 12 /hpf (0-5)
[2019-08-27 16:22] LABS: Albumin 4.6 g/dL (3.5-5.0); Calcium 10.1 mg/dL (8.4-10.2); Total Bilirubin 1.6 mg/dL (0.2-1.3); Total Protein 7.9 g/dL (6.3-8.2)
[2019-08-27] MEDS ORDERED: amLODIPine 5 MG TAB PO STA (16:28)
[2019-08-27] MEDS ORDERED: ASPIRIN 325 MG TAB PO STA (16:28)
[2019-08-27] MEDS: SODIUM CHLORIDE 0.9% 1,000 ML IV SCH (17:11)
[2019-08-27] MEDS ORDERED: FUROSEMIDE 10 MG/ML 4 ML VIAL IV STA (17:23)
--- NOTE | 2019-08-27 17:41 | ED ---
General Adult HPI - General Chief complaint: Neuro Symptoms/Deficit Stated complaint: Dizzy, Abd Pain Time Seen by Provider: 08/27/19 15:23 Source: patient, RN notes reviewed, old records reviewed Mode of arrival: ambulatory Limitations: no limitations - History of Present Illness Initial comments: 89-year-old female presents with dizziness and nausea. Patient states she is unsteady on her feet. She has a facial droop which began approximately 3 hours prior to arrival. Patient has previous history of TIA and CVA. She has intermittent facial droop for the past 3 years. She also has episodes of nausea vomiting and dizziness. This is typical of previous episodes. She has had history of hypertension and recently had her blood pressure medication reduced secondary to low blood pressure. She is anticoagulated with history of atrial f ibrillation and has had a pacemaker. No limb weakness or numbness. Facial droop has improved to baseline at the time my evaluation. - Related Data Home Medications Medication Instructions Recorded Confirmed Aspirin [Adult Low Dose Aspirin EC] 81 mg PO DAILY 11/25/16 08/23/18 Atorvastatin [Lipitor] 20 mg PO HS 11/25/16 08/23/18 Cholecalciferol [Vitamin D3 (25 1,000 unit PO DAILY 11/25/16 08/23/18 Mcg = 1000 Iu)] amLODIPine [Norvasc] 2.5 mg PO TID 11/25/16 08/23/18 Apixaban [Eliquis] 5 mg PO BID 01/18/18 08/23/18 D-Mannose 500mg 500 mg PO BID 01/18/18 08/23/18 Latanoprost [Xalatan 0.005%] 1 drop BOTH EYES HS 01/18/18 08/23/18 Budesonide/Formoterol Fumarate 1 puff INHALATION RT-DAILY 08/23/18 08/23/18 [Symbicort 80-4.5 Mcg Inhaler] Levalbuterol Nebulized [Xopenex 1.25 mg INHALATION RT-BID PRN 08/23/18 08/23/18 Nebulized] Lisinopril [Zestril] 20 mg PO DAILY 08/23/18 08/23/18 Metoprolol Succinate (ER) [Toprol 50 mg PO DAILY 08/23/18 08/23/18 XL] Previous Rx's Medication Instructions Recorded Furosemide [Lasix] 40 mg PO DAILY #30 tab 08/24/18 Potassium Chloride ER [K-Dur 10] 10 meq PO DAILY #30 tab.er.prt 08/24/18 Allergies Allergy/AdvReac Type Severity Reaction Status Date / Time cortisone Allergy face gets Verified 08/27/19 15:20 warm Review of Systems ROS Statement: Those systems with pertinent positive or pertinent negative responses have been documented in the HPI. ROS Other: All systems not noted in ROS Statement are negative. Past Medical History Past Medical History: Coronary Artery Disease (CAD), CVA/TIA, GERD/Reflux, Hypertension, Myocardial Infarction ([place]) Additional Past Medical History / Comment(s): varicose veins History of Any Multi-Drug Resistant Organisms: None Reported Past Surgical History: Appendectomy, Coronary Bypass/CABG, Hysterectomy, Joint Replacement, Pacemaker, Tonsillectomy Additional Past Surgical History / Comment(s): CABG 2011, breast biopsy, liat catarats, rt knee replacement Past Anesthesia/Blood Transfusion Reactions: No Reported Reaction Type of Cardiac Device: Permanent Pacemaker Device Placement Date:: 2011 Past Psychological History: Anxiety Smoking Status: Former smoker Past Alcohol Use History: None Reported Past Drug Use History: None Reported - Past Family History Mother Family Medical History: No Reported History General Exam Limitations: no limitations General appearance: alert, in no apparent distress Head exam: Present: atraumatic, normocephalic Eye exam: Present: normal appearance, PERRL, EOMI ENT exam: Present: normal exam Neck exam: Present: normal inspection Respiratory exam: Present: normal lung sounds bilaterally. Absent: respiratory distress, wheezes Cardiovascular Exam: Present: regular rate, normal rhythm GI/Abdominal exam: Present: soft. Absent: distended, tenderness, guarding Extremities exam: Present: normal inspection, full ROM Neurological exam: Present: alert, oriented X3, motor sensory deficit (Left minimal facial droop, NIH of 1), other. Absent: CN II-XII intact Psychiatric exam: Present: normal affect, normal mood Skin exam: Present: warm, dry, intact. Absent: cyanosis, diaphoretic Course Vital Signs 08/27/19 08/27/19 08/27/19 15:17 15:35 15:37 Temperature 97.9 F Pulse Rate 62 Respiratory 18 Rate Blood Pressure 161/73 199/103 O2 Sat by Pulse 99 99 Oximetry 1208/27/19 08/27/19 16:01 16:16 16:30 Temperature Pulse Rate 61 60 Respiratory 16 20 20 Rate Blood Pressure 199/103 195/81 205/78 O2 Sat by Pulse 98 98 Oximetry 08/27/19 08/27/19 16:58 17:00 Temperature Pulse Rate 79 71 Respiratory 18 16 Rate Blood Pressure 202/82 202/82 O2 Sat by Pulse 96 96 Oximetry EKG Findings - EKG Comments: EKG Findings:: Ventricular paced rhythm, rate of 85, QRS duration 138, QTC 499. Medical Decision Making - Medical Decision Making 89-year-old female presenting with left-sided facial droop history of CVA, and intermittent facial droop for the past 3 years. She has some gait instability and nausea which is also chronic. Initial blood pressure is significantly elevated her neuro exam is significant only for a minor left-sided facial droop. No dysarthria, no limb ataxia, 5 out of 5 strength in all extremities. Head CT is performed which is negative for intracranial hemorrhage, there is chronic ischemic changes. Chest x-ray negative for acute cardiac pulmonary disease. S he has creatinine of 1.35 which is at baseline for this patient with chronic kidney disease. She has an elevated potassium is 6.0 however this is hemolyzed. She is started on IV fluids, given antihypertensive medications, given Lasix for hyperkalemia, will repeat potassium level in the morning. Her symptoms resolved to baseline at time of my initial evaluation and at the time of reevaluation. She is anticoagulated with history of atrial fibrillation. She will be admitted for evaluation of TIA and hypertension. She is given oral antihypertensive medication with goal of permissive hypertension. - Lab Data Result diagrams: 08/27/19 15:46 08/27/19 15:46 Lab Results 08/27/19 08/27/19 08/27/19 Range/Units 15:20 15:46 15:46 WBC 6.7 (3.8-10.6) k/uL RBC 4.17 (3.80-5.40) m/uL Hgb 12.4 (11.4-16.0) gm/dL Hct 38.5 (34.0-46.0) % MCV 92.4 (80.0-100.0) fL MCH 29.7 (25.0-35.0) pg MCHC 32.1 (31.0-37.0) g/dL RDW 15.2 (11.5-15.5) % Plt Count 270 (150-450) k/uL Neutrophils % 66 % Lymphocytes % 22 % Monocytes % 6 % Eosinophils % 3 % Basophils % 1 % Neutrophils # 4.4 (1.3-7.7) k/uL Lymphocytes # 1.5 (1.0-4.8) k/uL Monocytes # 0.4 (0-1.0) k/uL Eosinophils # 0.2 (0-0.7) k/uL Basophils # 0.0 (0-0.2) k/uL Hypochromasia Slight PT (9.0-12.0) sec INR (<1.2) APTT (22.0-30.0) sec Sodium 140 (137-145) mmol/L Potassium 6.0 H (3.5-5.1) mmol/L Chloride 108 H (98-107) mmol/L Carbon Dioxide 24 (22-30) mmol/L Anion Gap 8 mmol/L BUN 36 H (7-17) mg/dL Creatinine 1.35 H (0.52-1.04) mg/dL Est GFR (CKD-EPI)AfAm 41 (>60 ml/min/1.73 sqM) Est GFR (CKD-EPI)NonAf 35 (>60 ml/min/1.73 sqM) Glucose 108 H (74-99) mg/dL POC Glucose (mg/dL) 118 H (75-99) mg/dL POC Glu Network Administrator ID Peters, Clive Calcium 10.1 (8.4-10.2) mg/dL Total Bilirubin 1.6 H (0.2-1.3) mg/dL AST 52 H (14-36) U/L ALT 14 (4-34) U/L Alkaline Phosphatase 65 (38-126) U/L Troponin I (0.000-0.034) ng/mL Total Protein 7.9 (6.3-8.2) g/dL Albumin 4.6 (3.5-5.0) g/dL Urine Color Urine Appearance (Clear) Urine pH (5.0-8.0) Ur Specific [place] (1.001-1.035) Urine Protein (Negative) Urine Glucose (UA) (Negative) Urine Ketones (Negative) Urine Blood (Negative) Urine Nitrite (Negative) Urine Bilirubin (Negative) Urine Urobilinogen (<2.0) mg/dL Ur Leukocyte Esterase (Negative) Urine RBC (0-5) /hpf Urine WBC (0-5) /hpf Ur Squamous Epith Cells (0-4) /hpf Amorphous Sediment (None) /hpf Hyaline Casts (0-2) /lpf Urine Mucus (None) /hpf 08/27/19 08/27/19 08/27/19 Range/Units 15:46 15:46 15:46 WBC (3.8-10.6) k/uL RBC (3.80-5.40) m/uL Hgb (11.4-16.0) gm/dL Hct (34.0-46.0) % MCV (80.0-100.0) fL MCH (25.0-35.0) pg MCHC (31.0-37.0) g/dL RDW (11.5-15.5) % Plt Count (150-450) k/uL Neutrophils % % Lymphocytes % % Monocytes % % Eosinophils % % Basophils % % Neutrophils # (1.3-7.7) k/uL Lymphocytes # (1.0-4.8) k/uL Monocytes # (0-1.0) k/uL Eosinophils # (0-0.7) k/uL Basophils # (0-0.2) k/uL Hypochromasia PT 9.9 (9.0-12.0) sec INR 0.9 (<1.2) APTT 22.6 (22.0-30.0) sec Sodium (137-145) mmol/L Potassium (3.5-5.1) mmol/L Chloride (98-107) mmol/L Carbon Dioxide (22-30) mmol/L Anion Gap mmol/L BUN (7-17) mg/dL Creatinine (0.52-1.04) mg/dL Est GFR (CKD-EPI)AfAm (>60 ml/min/1.73 sqM) Est GFR (CKD-EPI)NonAf (>60 ml/min/1.73 sqM) Glucose (74-99) mg/dL POC Glucose (mg/dL) (75-99) mg/dL POC Glu Network Administrator ID Calcium (8.4-10.2) mg/dL Total Bilirubin (0.2-1.3) mg/dL AST (14-36) U/L ALT (4-34) U/L Alkaline Phosphatase (38-126) U/L Troponin I 0.019 (0.000-0.034) ng/mL Total Protein (6.3-8.2) g/dL Albumin (3.5-5.0) g/dL Urine Color Yellow Urine Appearance Cloudy H (Clear) Urine pH 6.0 (5.0-8.0) Ur Specific [place] 1.022 (1.001-1.035) Urine Protein Trace H (Negative) Urine Glucose (UA) Negative (Negative) Urine Ketones Negative (Negative) Urine Blood Negative (Negative) Urine Nitrite Negative (Negative) Urine Bilirubin Negative (Negative) Urine Urobilinogen <2.0 (<2.0) mg/dL Ur Leukocyte Esterase Moderate H (Negative) Urine RBC 3 (0-5) /hpf Urine WBC 12 H (0-5) /hpf Ur Squamous Epith Cells 1 (0-4) /hpf Amorphous Sediment Rare H (None) /hpf Hyaline Casts 6 H (0-2) /lpf Urine Mucus Rare H (None) /hpf Disposition Clinical Impression: Transient cerebral ischemia, Hypertension Disposition: ADMITTED IP TO THIS [facility] Condition: Stable Is patient prescribed a controlled substance at d/c from ED?: No Referrals: Karthik Olsen MD [Primary Care Provider] - 1-2 days Decision to Admit Reason: Admit from EC Decision Date: 08/27/19 Decision Time: 17:41
[2019-08-27] MEDS: APIXABAN 2.5 MG TABLET PO SCH (20:30)
[2019-08-27] MEDS: amLODIPine 2.5 MG TAB PO SCH (20:30)
[2019-08-27] MEDS ORDERED: ATORVASTATIN 20 MG TAB PO SCH (21:00)
[2019-08-27] MEDS ORDERED: APIXABAN 5 MG TAB PO SCH (21:00)
[2019-08-27] MEDS ORDERED: DEXTROSE 10 % IN WATER 250 ML IV ONE (21:02)
[2019-08-27] MEDS ORDERED: INSULIN REGULAR 100 UNIT/ML VIAL IV ONE (21:03)
[2019-08-27] MEDS ORDERED: LATANOPROST 0.005% OPHTH DROPS 2.5 ML BTL BOTH EYES SCH (21:15)
--- NOTE | 2019-08-27 22:08 | P.CNNES ---
History of Present Illness Consult date: 08/27/19 Requesting physician: Ovi Jordan Reason for Consult: TIA hypertension History of Present Illness: Patient is a 89-year-old female, who came to the hospital for feeling sick and nauseous. Patient states that this sensation came on all of a sudden, but she has experienced this sensation in the past also. Patient when arrived, her blood pressure was elevated 161/173. Afterwards it went up to 211/81. She was admitted for uncontrolled blood pressure. Patient also has history of vertigo off and on for the last 4-5 years. This time there was no vertigo. There was some report that she had facial droopiness. Patient tells me that she does have chronic facial droop on the left for 3 years, not a new finding. Patient does have chronic intermittent nausea vomiting dizziness and vertigo. 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 Patient has atrial fibrillation and has a pacemaker. Patient is on anticoagulation with Apixaban 2.5 mg twice a day. Patient denies any focal symptoms like numbness tingling slurred speech, problem with the vision or headaches. Patient's EKG showed ventricular paced rhythm. Computed tomography scan of head revealed age-related atrophy and chronic small vessel ischemic changes without acute intracranial process. Chest x-ray showed evidence of cardiomegaly. Pulmonary venous congestion. No overt failure. Patient's blood test shows normal CBC, PT/PTT. Her BUN is 36, creatinine 1.35. Review of Systems As above in detail. All other review of systems unremarkable. Past Medical History Past Medical History: Coronary Artery Disease (CAD), CVA/TIA, GERD/Reflux, Hypertension, Myocardial Infarction ([place]) Additional Past Medical History / Comment(s): varicose veins Last Myocardial Infarction Date:: 2011 History of Any Multi-Drug Resistant Organisms: None Reported Past Surgical History: Appendectomy, Coronary Bypass/CABG, Hysterectomy, Joint Replacement, Pacemaker, Tonsillectomy Additional Past Surgical History / Comment(s): CABG 2011, breast biopsy, liat cataracts, rt knee replacement Past Anesthesia/Blood Transfusion Reactions: No Reported Reaction Type of Cardiac Device: Permanent Pacemaker Device Placement Date:: 2011 Past Psychological History: Anxiety Smoking Status: Former smoker Past Alcohol Use History: None Reported Additional Past Alcohol Use History / Comment(s): quit smoking 1968, started smoking age 19 Past Drug Use History: None Reported - Past Family History Mother Family Medical History: CVA/TIA, Diabetes Mellitus Father Family Medical History: Coronary Artery Disease (CAD) Medications and Allergies Home Medications Medication Instructions Recorded Confirmed Type Aspirin [Adult Low Dose Aspirin EC] 81 mg PO HS 11/25/16 08/27/19 History Atorvastatin [Lipitor] 20 mg PO HS 11/25/16 08/27/19 History Cholecalciferol [Vitamin D3 (25 1,000 unit PO DAILY 11/25/16 08/27/19 History Mcg = 1000 Iu)] amLODIPine [Norvasc] 2.5 mg PO HS 11/25/16 08/27/19 History D-Mannose 500mg 500 mg PO BID 01/18/18 08/27/19 History Latanoprost [Xalatan 0.005%] 1 drop BOTH EYES HS 01/18/18 08/27/19 History Furosemide [Lasix] 40 mg PO DAILY #30 tab 08/24/18 08/27/19 Rx Potassium Chloride ER [K-Dur 10] 10 meq PO DAILY #30 tab.er.prt 08/24/18 08/27/19 Rx Apixaban [Eliquis] 2.5 mg PO BID 08/27/19 08/27/19 History Lisinopril 40 mg PO DAILY@1200 08/27/19 08/27/19 History Allergies Allergy/AdvReac Type Severity Reaction Status Date / Time cortisone Allergy face gets Verified 08/27/19 18:16 warm Physical Examination - Vital Signs Vital Signs: Vital Signs Temp Pulse Pulse Resp BP BP Pulse Ox 08/27/19 19:17 71 20 176/76 95 08/27/19 19:00 60 20 188/75 08/27/19 18:30 60 16 198/76 97 08/27/19 18:00 60 20 194/79 99 08/27/19 17:30 61 18 185/82 98 08/27/19 17:00 71 16 202/82 96 08/27/19 16:58 79 18 202/82 96 08/27/19 16:30 60 20 205/78 98 08/27/19 16:16 20 195/81 08/27/19 16:01 61 16 199/103 98 08/27/19 15:37 199/103 08/27/19 15:35 99 08/27/19 15:17 97.9 F 62 18 161/73 99 Intake and Output 08/27/19 08/27/19 08/27/19 06:59 14:59 22:59 Other: Weight 63.503 kg On examination patient is an elderly female, in no distress. Patient is alert and awake oriented to time place and person. Speech and leg which f unctions appears normal. On cranial examination pupils are round and reactive to light. Visual [place] are full, face is symmetric and tongue protrudes to the midline. Palatal elevation and sensation normal. On muscle strength testing there is no pronator drift and the strength is normal in arms and legs. No ataxia. Tone and bulk of muscles normal. No obvious bruit S1 and S2 audible. No peripheral edema. Results - Laboratory Findings CBC and BMP: 08/27/19 15:46 08/27/19 21:13 Abnormal Lab Findings: Abnormal Labs 08/27/19 08/27/19 08/27/19 15:20 15:46 15:46 Potassium 6.0 H Chloride 108 H BUN 36 H Creatinine 1.35 H Glucose 108 H POC Glucose (mg/dL) 118 H Total Bilirubin 1.6 H AST 52 H Urine Appearance Cloudy H Urine Protein Trace H Ur Leukocyte Esterase Moderate H Urine WBC 12 H Amorphous Sediment Rare H Hyaline Casts 6 H Urine Mucus Rare H Assessment and Plan Assessment: * 89-year-old female with intermittent left facial droopiness. Patient states it has been there for 3 years, and does not believe that it is of any concern and there is no other focal deficits. No evidence of TIA or CVA. * Atrial fibrillation, currently on anticoagulation with Apixaban 2.5 mg twice a day. * Hypertension * Coronary artery disease * History of recurrent vertigo in the past. Plan: * Continue Apixaban 2.5 mg twice a day. * We will check carotid Doppler to rule out carotid stenosis. * Otherwise no other neurological workup indicated. * Your medical management for hypertension. * Neurologically clear, if carotid Doppler comes back negative.
--- NOTE | 2019-08-27 23:00 | US ---
EXAMINATION TYPE: US carotid duplex BILAT DATE OF EXAM: 08/27/2019 COMPARISON: NONE CLINICAL HISTORY: Left facial droop, rule out TIA. EXAM MEASUREMENTS: RIGHT: Peak Systolic Velocity (PSV) cm/sec ----- Right CCA: 57.5 ----- Right ICA: 87.8 ----- Right ECA: 109.9 ICA/CCA ratio: 1.5 RIGHT: End Diastole cm/sec ----- Right CCA: 6.0 ----- Right ICA: 13.1 ----- Right ECA: 0.0 LEFT: Peak Systolic Velocity (PSV) cm/sec ----- Left CCA: 69.7 ----- Left ICA: 143.7 ----- Left ECA: 176.3 ICA/CCA ratio: 2.1 LEFT: End Diastole cm/sec ----- Left CCA: 6.0 ----- Left ICA: 15.6 ----- Left ECA: 9.1 VERTEBRALS (direction of flow): Right Vertebral: Antegrade Left Vertebral: Antegrade Rhythm: Normal Noriega scale images show moderate to severe plaque centered at carotid bulb level bilaterally. Increase d peak systolic velocities and abnormal ratio left internal carotid artery is noted. End diastolic ve locity remains within normal limits. IMPRESSION: Fairly severe atherosclerotic change bilaterally with significant stenosis left internal carotid artery not excluded. Further investigation with CTA or MRA of the neck can be performed to f urther evaluate and characterize if desired. Criteria for Assigning % of Stenosis / Diameter reduction (Estimation based on the indirect measurements of the internal carotid artery velocities (ICA PSV). 1. Normal (no stenosis)=ICA PSV < 125 cm/s: ratio < 2.0: ICA EDV<40 cm/s. 2. Less than 50% stenosis=ICA PSV < 125 cm/s: ratio < 2.0: ICA EDV<40 cm/s. 3. 50 to 69% stenosis=ICA PSV of 125 to 230 cm/s: ration 2.0 ? 4.0: ICA EDV 40-100 cm/s. 4. Greater than 70% stenosis to near occlusion= ICA PSV > 230 cm/s: ratio > 4.0: ICA EDV > 100 cm/s. 5. Near occlusion= ICA PSV velocities may be low or undetectable: variable ratio and ICA EDV. 6. Total occlusion=unable to detect flow.
[2019-08-28] MEDS ORDERED: ACETAMINOPHEN TAB 500 MG TAB PO PRN (00:55)
[2019-08-28] MEDS ORDERED: ALPRAZolam 0.25 MG TAB PO PRN (01:00)
[2019-08-28 06:32] LABS: Cholesterol 145 mg/dL (<200); HDL Cholesterol 65 mg/dL (40-60); LDL Cholesterol,Calculated 65 mg/dL (0-99); Triglycerides 76 mg/dL (<150)
[2019-08-28] MEDS ORDERED: PANTOPRAZOLE 40 MG TABLET PO SCH (07:30)
[2019-08-28] MEDS: PANTOPRAZOLE 40 MG/10 ML VIAL IVP SCH ×2 (07:56→08:20)
[2019-08-28] MEDS: SODIUM CHLORIDE 0.9% 1,000 ML IV SCH (07:56)
[2019-08-28 08:19] VITALS: RESP 18
[2019-08-28] MEDS: amLODIPine 2.5 MG TAB PO SCH (08:20)
[2019-08-28] MEDS: APIXABAN 2.5 MG TABLET PO SCH (08:20)
[2019-08-28 08:25] VITALS: TEMP 97.9
[2019-08-28] MEDS ORDERED: FUROSEMIDE 40 MG TAB PO SCH (09:00)
[2019-08-28] MEDS ORDERED: CHOLECALCIFEROL 1,000 UNIT TAB PO SCH (09:00)
[2019-08-28] MEDS ORDERED: METOPROLOL SUCCINATE (ER) 50 MG TAB.ER.24H PO SCH (09:00)
[2019-08-28] MEDS ORDERED: LISINOPRIL 20 MG TAB PO SCH ×2 (09:00→12:00)
--- NOTE | 2019-08-28 09:39 | HP ---
HISTORY AND PHYSICAL DATE OF SERVICE: 08/27/2019. CHIEF COMPLAINTS: Feeling sick and weak and nauseated. HISTORY OF PRESENT ILLNESS: This 89-year-old woman with a past medical history of multiple medical problems including CAD, history of CVA, TIA, GERD, hypertension, myocardial infarction, appendectomy, CAD/CABG being followed by Dr. Olsen in the outpatient setting presented to [facility] today with complaints of feeling weak and feeling sick. The patient also has some drooping of the face on the left side was also noted. Full neurology workup is also underway to rule out the possibility of any stroke. The possibility of TIA is also considered. The patient also had atrial fibrillation, currently on anticoagulation. There is no history of fever, rigors, chills at this time. PAST MEDICAL HISTORY: History of CAD, CVA, TIA, GERD, hypertension, history of myocardial infarction. MEDICATIONS: Home medications are: 1. Lisinopril 40 mg p.o. daily. 2. Norvasc 2.5 mg q.h.s. 3. K-Dur 10 mEq p.o. daily. 4. Xalatan 1 drop both eyes q.h.s. 5. Lasix 40 mg p.o. daily. 6. D-Mannose 500 mg p.o. b.i.d. 7. Vitamin D3 1000 daily. 8. Lipitor 20 mg q.h.s. 9. Aspirin 81 mg p.o. q.h.s. 10.Eliquis 2.5 mg p.o. b.i.d. ALLERGIES: CORTISONE. FAMILY HISTORY: History of CVA, TIA, diabetes mellitus in the family. SOCIAL HISTORY: Previous history of smoking. No history of current smoking or alcohol intake. REVIEW OF SYSTEMS: ENT: Diminished vision. Diminished hearing. CARDIOVASCULAR: No angina or palpitations. RESPIRATIONS: No cough or hemoptysis. GI mentioned earlier. no dysuria or retention. Nervous System: No numbness or weakness. ALLERGY/IMMUNOLOGY: No asthma or hayfever. MUSCULOSKELETAL as mentioned earlier. HEMATOLOGY/ONCOLOGY: No history of anemia. ENDOCRINE: No history of diabetes or hypothyroidism. CONSTITUTIONAL: As mentioned earlier. DERMATOLOGY: Negative. RHEUMATOLOGY: Negative. PSYCHIATRIC: As mentioned earlier. PHYSICAL EXAMINATION: Alert and oriented x2. Pulse is 71, blood pressure 117/76, respiration 20, temperature normal, pulse ox 94% on room air. HEENT: Conjunctivae normal. Oral mucosa moist. NECK is no jugular venous distention. No carotid bruit. No lymph node enlargement. Cardiovascular system: S1, S2 muffled. No S3, no S4. RESPIRATORY: Breath sounds diminished in the bases. No rhonchi. No crackles. ABDOMEN: Soft, nontender. No mass palpable. LEGS: No edema. No swelling. NERVOUS SYSTEM: Higher functions as mentioned earlier, minimal drooping on the left side of the face present. Otherwise, moves all 4 limbs. No focal motor or sensory deficits. Lymphatics: No lymph nodes palpable in the neck, axillae or groin. SKIN: No ulcer, no rash and no bleeding. JOINTS: No active deforming arthropathy. LABS: CBC within normal limits and potassium is 6, creatinine is 1.35, total bilirubin is 1.6, AST is 52. UA noted. ASSESSMENT: 1. Weakness, unsteadiness of gait and dysarthria possible acute transient ischemic attack. 2. Nausea, possible acute gastritis. 3. Dehydration with acute renal failure, possibly prerenal acute tubular necrosis present on admission. 4. Elevated bilirubin and AST. Mild hepatitis possibly. 5. Hyperkalemia present on admission secondary to renal failure. 6. Possible mild urinary tract infection present on admission. 7. History of coronary artery disease. 8. History of cerebrovascular accident, transient ischemic attack. 9. Gastroesophageal reflux disease. 10.Hypertension. 11.History of myocardial infarction. 12.History of varicose veins. 13.History of coronary artery disease, coronary artery bypass grafting. 14.History of degenerative joint disease. 15.History of anxiety. 16.Remote history of nicotine dependence. 17.NO CODE, NO CPR, NO VENT. RECOMMENDATIONS AND DISCUSSION: This 89-year-old woman who presented with multiple complex medical issues, at this time, I recommend to continue current medications, continue with monitoring, symptomatic treatment. I recommend continue with antiplatelet agents. Neurology consultation. Resume the home medications. Empiric antibiotics. Protonix IV b.i.d. Symptomatic treatment. Clear liquids. Guarded prognosis. Further recommendations to follow. MMODL / IJN: [id number] /
[2019-08-28 10:48] VITALS: BP 134/77; PULSE 63
[2019-08-28] MEDS ORDERED: ASPIRIN 325 MG TAB PO SCH (12:00)
[2019-08-28] MEDS ORDERED: ASPIRIN 81 MG PO SCH (21:00)
--- NOTE | 2019-08-29 08:54 | DS ---
DISCHARGE SUMMARY FINAL DIAGNOSES: 1. Weakness and unsteady gait, possible acute transient ischemic attack. 2. Nausea, possible acute gastritis. 3. Dehydration with acute renal failure possibly prerenal acute renal failure with acute tubular necrosis present on admission. 4. Elevated bilirubin AST, mild acute hepatitis possibly. 5. Hyperkalemia, possibly secondary to renal failure. 6. Mild urinary tract infection present on admission. 7. History of coronary artery disease. 8. History of cerebrovascular accident, transient ischemic attack. 9. Gastroesophageal reflux disease. 10.Hypertension. 11.History of myocardial infarction. 12.History of varicose veins. 13.History of coronary artery disease, coronary artery bypass grafting. 14.History of degenerative joint disease. 15.History of anxiety. 16.Remote history of nicotine dependence. 17.NO CODE, NO CPR, NO VENT. DISCHARGE DISPOSITION: The patient will be discharged in stable condition with guarded prognosis. HISTORY OF PRESENT ILLNESS: This 89-year-old woman with a past medical history of multiple medical problems was admitted with multiple symptomatology as listed above. Patient treated symptomatically. Patient improved significantly. Patient also seen by Neurology. Neurovascular workup was also done. On exam, vitals are stable. CARDIOVASCULAR: S1, S2. Abdomen soft. NERVOUS SYSTEM: No focal deficit. DISCHARGE ADVICE/MEDICATIONS: As follows: 1. Diet is cardiac. 2. Activity limited until followup. 3. Follow up with Dr. Olsen in 2-3 days. DISCHARGE MEDICATIONS: 1. Ecotrin 81 mg p.o. daily. 2. D-Mannose 500 mg p.o. b.i.d. 3. Eliquis 2.5 mg b.i.d. 4. Lipitor 20 mg q.h.s. 5. Lisinopril 40 mg p.o. daily. 6. Norvasc 2.5 mg q.h.s. 7. Vitamin D3 1000 units daily. 8. Xalatan 0.05% 1 drop both eyes. 9. Ceftin 500 mg p.o. b.i.d. for 3 days. 10.K-Dur 10 mEq p.o. daily. 11.Lasix 40 mg p.o. daily. 12.Protonix 40 mg p.o. daily. Follow up with Neurology as recommended. Once again the patient is being discharged in stable condition with guarded prognosis. MMODL / IJN: [id number] /
== END 2019-08-28 14:11 | disposition home or self-care (01) ==
LOC: EC 15:04 → 3SCARD 17:32
PROVIDERS: ADMIT Hospitalist; ATTEND Hospitalist
DX: R53.1 Weakness (principal); R26.9 Unspecified abnormalities of gait and mobility; E86.0 Dehydration; E87.5 Hyperkalemia; I13.10 Hypertensive heart and chronic kidney disease without heart failure, with stage 1 through stage 4 chronic kidney disease, or unspecified chronic kidney disease; I25.10 Atherosclerotic heart disease of native coronary artery without angina pectoris; I25.2 Old myocardial infarction; I48.91 Unspecified atrial fibrillation; K21.9 Gastro-esophageal reflux disease without esophagitis; N17.9 Acute kidney failure, unspecified; N18.9 Chronic kidney disease, unspecified; N39.0 Urinary tract infection, site not specified; R29.810 Facial weakness; Z79.01 Long term (current) use of anticoagulants; Z79.51 Long term (current) use of inhaled steroids; Z79.82 Long term (current) use of aspirin; Z79.899 Other long term (current) drug therapy; Z82.49 Family history of ischemic heart disease and other diseases of the circulatory system; Z83.3 Family history of diabetes mellitus; Z86.73 Personal history of transient ischemic attack (TIA), and cerebral infarction without residual deficits; Z87.891 Personal history of nicotine dependence; Z90.710 Acquired absence of both cervix and uterus; Z95.0 Presence of cardiac pacemaker; Z95.1 Presence of aortocoronary bypass graft; Z96.651 Presence of right artificial knee joint; Z88.8 Allergy status to other drugs, medicaments and biological substances
CPT/HCPCS: 96374; 96375; 96361; 99285; 36415; 93005; 97161; 80061; 80053; 84132 ×2; 84484; 85025; 85610; 85730; 81001; 71046; 93880; 70450; G0378 ×2; J1940; C9113

== ENCOUNTER → 2019-10-11 | Outpatient (CLI) | payer MEDICARE ==
--- NOTE | 2019-10-11 17:17 | CT ---
EXAMINATION TYPE: CT angio neck DATE OF EXAM: 10/11/2019 HISTORY: Occlusion and stenosis. COMPARISON: Ultrasound 08/27/2019 CT DLP: 279.8 mGycm. Automated Exposure Control for Dose Reduction was Utilized. TECHNIQUE: CTA scan of the neck is performed with IV Contrast, patient injected with 65 mL of Isovue 370, axial images are obtained, coronal and sagittal reformatted images are reviewed. Three-D recons tructed images are created on an independent workstation and reviewed. Source images are reviewed. FINDINGS: Carotid/Vascular Structures: Extensive calcifications through the carotid bifurcations. However, sign ificant flow-limiting stenosis is not apparent. There appears to be slightly greater narrowing on the left compared to the right. This appears to be less than 70% bilaterally IMPRESSION: 1. Atheromatous plaquing present bilaterally. However, significant flow-limiting stenosis is not craig rly identified based on the imaging. This appears to be less significant than the ultrasound of 08/27. The left appears slightly greater than on the right.
== END | disposition home or self-care (01) ==
LOC: RADCTMAIN 12:18
PROVIDERS: ATTEND Psychiatry & Neurology Neurology
DX: I65.23 Occlusion and stenosis of bilateral carotid arteries (principal)
CPT/HCPCS: 82565; 84520; 70498; 36415; Q9967

== ENCOUNTER → 2020-05-10 | Outpatient (CLI) | payer MEDICARE ==
--- NOTE | 2020-05-10 13:11 | CT ---
EXAMINATION TYPE: CT brain wo con DATE OF EXAM: 05/10/2020 COMPARISON: 08/27/2019 HISTORY: Pain post fall CT DLP: 1121 mGycm Automated exposure control for dose reduction was used. FINDINGS: Intracranial atherosclerotic changes are noted. There is mild generalized degenerative change. Faint low-attenuation the white matter is nonspecific but most typical remote microvascular ischemia. There is a large soft tissue hematoma overlying the posterior right occiput measuring approximately 3.5 cm . No acute intracranial hemorrhage. No mass effect. Calvarium intact. IMPRESSION: 1. A 3.5 cm soft tissue subcutaneous hematoma. No acute intracranial hemorrhage or mass effect. 2. Degenerative and nonspecific white matter changes most typical remote microvascular ischemia.
== END | disposition home or self-care (01) ==
LOC: RADCTMAIN 12:27
PROVIDERS: ATTEND Internal Medicine
DX: T14.8XXA Other injury of unspecified body region, initial encounter (principal); I67.82 Cerebral ischemia; R90.82 White matter disease, unspecified
CPT/HCPCS: 70450